=== PATIENT | male | born 1965 | race Caucasian/White ===

== ENCOUNTER 2020-10-13 08:55 | Outpatient (REF) | payer MEDICAID, SELFPAY ==
[2020-10-13 11:42] LABS: Estimated Average Glucose 180 mg/dL; Hemoglobin A1c % 7.9 %
[2020-10-13 12:13] LABS: Alanine Aminotransferase 26 U/L (0-40); Albumin Level 4.4 g/dL (3.5-5.0); Alkaline Phosphatase 66 U/L (39-117); Anion Gap 14 (12-20); Aspartate Amino Transferase 17 U/L (5-37); Bilirubin Total 0.7 mg/dL (0.0-1.0); Blood Urea Nitrogen 22 mg/dL (9-16); Calcium 8.9 mg/dL (8.4-10.2); Carbon Dioxide 25 mmol/L (22-29); Chloride 101 mmol/L (96-108); Cholesterol 109 mg/dL; Estimated Glomerular Filt Rate > 60; Glucose Fasting 253 mg/dL (60-99); HDL Cholesterol 33 mg/dL; LDL Cholesterol Calculated 63 mg/dl; Potassium 3.9 mmol/l (3.3-5.1); Sodium 136 mmol/L (135-145); Total Protein 7.1 g/dL (6.5-8.0); Triglycerides 69 mg/dL
== END 2020-10-13 08:56 | disposition home or self-care (01) ==
LOC: HO.MANLR 08:55
PROVIDERS: PCP Internal Medicine; Visit Provider Internal Medicine
DX: E11.9 Type 2 diabetes mellitus without complications (principal)
CPT/HCPCS: 80053; 80061; 83036

== ENCOUNTER 2021-01-14 08:35 | Outpatient (REF) | payer MEDICAID, SELFPAY ==
[2021-01-14 14:01] LABS: Estimated Average Glucose 146 mg/dL; Hemoglobin A1c % 6.7 %
== END 2021-01-14 08:36 | disposition home or self-care (01) ==
LOC: HO.MANLR 08:35
PROVIDERS: PCP Internal Medicine; Visit Provider Internal Medicine
DX: E11.9 Type 2 diabetes mellitus without complications (principal)
CPT/HCPCS: 36415; 83036

== ENCOUNTER 2021-04-21 08:46 | Outpatient (REF) | payer MEDICAID, SELFPAY ==
[2021-04-21 12:03] LABS: Estimated Average Glucose 171 mg/dL; Hemoglobin A1c % 7.6 %
== END 2021-04-21 08:47 | disposition home or self-care (01) ==
LOC: HO.MANLDS 08:46
PROVIDERS: PCP Internal Medicine; Visit Provider Internal Medicine
DX: E11.9 Type 2 diabetes mellitus without complications (principal)
CPT/HCPCS: 36415; 83036

== ENCOUNTER 2021-08-12 08:31 | Outpatient (REF) | payer MEDICAID, SELFPAY ==
[2021-08-12 12:58] LABS: Estimated Average Glucose 183 mg/dL
== END 2021-08-12 08:32 | disposition home or self-care (01) ==
LOC: HO.MANLDS 08:31
PROVIDERS: PCP Internal Medicine; Visit Provider Internal Medicine
DX: E11.9 Type 2 diabetes mellitus without complications (principal)
CPT/HCPCS: 36415; 83036

== ENCOUNTER 2021-11-13 08:43 | Outpatient (REF) | payer MEDICAID, SELFPAY ==
[2021-11-13 11:19] LABS: Estimated Average Glucose 171 mg/dL; Hemoglobin A1c % 7.6 %
== END 2021-11-13 08:44 | disposition home or self-care (01) ==
LOC: HO.MANLDS 08:43
PROVIDERS: PCP Internal Medicine; Visit Provider Internal Medicine
DX: E11.9 Type 2 diabetes mellitus without complications (principal)
CPT/HCPCS: 36415; 83036

== ENCOUNTER 2022-02-15 08:42 | Outpatient (REF) | payer MEDICAID, SELFPAY ==
[2022-02-15 11:27] LABS: Estimated Average Glucose 212 mg/dL
[2022-02-15 11:42] LABS: Alanine Aminotransferase 31 U/L (0-40); Albumin Level 4.3 g/dL (3.5-5.0); Alkaline Phosphatase 71 U/L (39-117); Anion Gap 14 (12-20); Aspartate Amino Transferase 18 U/L (5-37); Bilirubin Total 0.9 mg/dL (0.0-1.0); Blood Urea Nitrogen 18 mg/dL (9-16); Calcium 9.4 mg/dL (8.4-10.2); Carbon Dioxide 25 mmol/L (22-29); Chloride 99 mmol/L (96-108); Cholesterol 109 mg/dL; Estimated Glomerular Filt Rate > 60; Glucose Fasting 263 mg/dL (60-99); HDL Cholesterol 34 mg/dL; LDL Cholesterol Calculated 59 mg/dl; Sodium 134 mmol/L (135-145); Triglycerides 80 mg/dL
== END 2022-02-15 08:43 | disposition home or self-care (01) ==
LOC: HO.MANLDS 08:42
PROVIDERS: PCP Internal Medicine; Visit Provider Internal Medicine
DX: E11.9 Type 2 diabetes mellitus without complications (principal)
CPT/HCPCS: 36415; 80053; 80061; 83036

== ENCOUNTER 2022-02-16 12:23 | Outpatient (REF) | payer MEDICAID, SELFPAY ==
[2022-02-16 18:21] LABS: Creatinine Urine 73.81 mg/dL; Microalbum/Creatinine Ratio Ur 41.9 ug/mg cr
== END 2022-02-16 12:24 | disposition home or self-care (01) ==
LOC: HO.MANLNP 12:23
PROVIDERS: PCP Internal Medicine; Visit Provider Internal Medicine
DX: E11.9 Type 2 diabetes mellitus without complications (principal)
CPT/HCPCS: 82043

== ENCOUNTER 2022-05-25 08:38 | Outpatient (REF) | payer MEDICAID, SELFPAY ==
[2022-05-25 12:25] LABS: Estimated Average Glucose 157 mg/dL; Hemoglobin A1c % 7.1 %
== END 2022-05-25 08:39 | disposition home or self-care (01) ==
LOC: HO.MANLDS 08:38
PROVIDERS: Visit Provider Internal Medicine
DX: E11.9 Type 2 diabetes mellitus without complications (principal)
CPT/HCPCS: 36415; 83036

== ENCOUNTER 2022-09-07 08:32 | Outpatient (REF) | payer MEDICAID, SELFPAY ==
[2022-09-07 11:33] LABS: Estimated Average Glucose 151 mg/dL; Hemoglobin A1c % 6.9 %
[2022-09-07 11:51] LABS: Alanine Aminotransferase 23 U/L (0-40); Albumin Level 4.5 g/dL (3.5-5.0); Alkaline Phosphatase 60 U/L (39-117); Anion Gap 14 (12-20); Aspartate Amino Transferase 16 U/L (5-37); Bilirubin Total 0.6 mg/dL (0.0-1.0); Blood Urea Nitrogen 19 mg/dL (9-16); Calcium 9.2 mg/dL (8.4-10.2); Carbon Dioxide 28 mmol/L (22-29); Chloride 102 mmol/L (96-108); Cholesterol 102 mg/dL; Estimated Glomerular Filt Rate > 60; Glucose Random 178 mg/dL (60-115); HDL Cholesterol 33 mg/dL; LDL Cholesterol Calculated 56 mg/dl; Potassium 3.8 mmol/L (3.3-5.1); Sodium 140 mmol/L (135-145); Triglycerides 68 mg/dL
[2022-09-07 12:02] LABS: Prostate Specific Antigen 0.26 ng/mL (<0.05-4.0)
[2022-09-07 12:03] LABS: Creatinine Urine 36.69 mg/dL; Microalbum/Creatinine Ratio Ur 57.2 ug/mg cr
== END 2022-09-07 08:33 | disposition home or self-care (01) ==
LOC: HO.MANLDS 08:32
PROVIDERS: Visit Provider Internal Medicine
DX: Z12.5 Encounter for screening for malignant neoplasm of prostate (principal); E11.9 Type 2 diabetes mellitus without complications
CPT/HCPCS: 36415; 80053; 80061; 82043; 83036; 84153

== ENCOUNTER 2023-01-04 08:33 | Outpatient (REF) | payer MEDICAID, SELFPAY ==
[2023-01-04 11:23] LABS: Estimated Average Glucose 177 mg/dL; Hemoglobin A1c % 7.8 %
[2023-01-04 11:56] LABS: Creatinine Urine 22.99 mg/dL; Microalbum/Creatinine Ratio Ur 104.3 ug/mg cr
[2023-01-04 11:59] LABS: Alanine Aminotransferase 26 U/L (0-40); Albumin Level 4.4 g/dL (3.5-5.0); Alkaline Phosphatase 73 U/L (39-117); Anion Gap 16 (12-20); Aspartate Amino Transferase 15 U/L (5-37); Bilirubin Total 0.9 mg/dL (0.0-1.0); Blood Urea Nitrogen 16 mg/dL (9-16); Calcium 9.5 mg/dL (8.4-10.2); Carbon Dioxide 25 mmol/L (22-29); Chloride 101 mmol/L (96-108); Cholesterol 112 mg/dL; Estimated Glomerular Filt Rate > 60; Glucose Random 239 mg/dL (60-115); HDL Cholesterol 35 mg/dL; LDL Cholesterol Calculated 62 mg/dl; Sodium 138 mmol/L (135-145); Total Protein 6.9 g/dL (6.5-8.0); Triglycerides 75 mg/dL
== END 2023-01-04 08:34 | disposition home or self-care (01) ==
LOC: HO.MANLDS 08:33
PROVIDERS: Visit Provider Internal Medicine
DX: Z13.89 Encounter for screening for other disorder (principal)
CPT/HCPCS: 36415; 80053; 80061; 82043; 83036

== ENCOUNTER 2023-06-28 08:30 | Outpatient (REF) | payer OTHER, SELFPAY ==
[2023-06-28 13:51] LABS: Estimated Average Glucose 177 mg/dL; Hemoglobin A1c % 7.8 %
[2023-06-28 14:20] LABS: Alanine Aminotransferase 32 U/L (0-40); Albumin Level 4.2 g/dL (3.5-5.0); Alkaline Phosphatase 70 U/L (39-117); Anion Gap 17 (12-20); Aspartate Amino Transferase 18 U/L (5-37); Bilirubin Total 0.7 mg/dL (0.0-1.0); Blood Urea Nitrogen 21 mg/dL (9-16); Calcium 9.4 mg/dL (8.4-10.2); Carbon Dioxide 24 mmol/L (22-29); Chloride 103 mmol/L (96-108); Cholesterol 100 mg/dL; Estimated Glomerular Filt Rate > 60; Glucose Random 224 mg/dL (60-115); HDL Cholesterol 28 mg/dL; LDL Cholesterol Calculated 55 mg/dl; Potassium 3.6 mmol/L (3.3-5.1); Sodium 140 mmol/L (135-145); Total Protein 7.1 g/dL (6.5-8.0); Triglycerides 85 mg/dL
== END 2023-06-28 08:31 | disposition home or self-care (01) ==
LOC: HO.MANLDS 08:30
PROVIDERS: Visit Provider Internal Medicine
DX: E11.9 Type 2 diabetes mellitus without complications (principal)
CPT/HCPCS: 36415; 80053; 80061; 83036

== ENCOUNTER 2024-03-07 08:48 | Outpatient (REF) | payer OTHER, SELFPAY ==
[2024-03-07 14:12] LABS: Estimated Average Glucose 174 mg/dL; Hemoglobin A1c % 7.7 % (<6.0)
== END 2024-03-07 08:49 | disposition home or self-care (01) ==
LOC: HO.MANLDS 08:48
PROVIDERS: Visit Provider Internal Medicine
DX: E11.9 Type 2 diabetes mellitus without complications (principal)
CPT/HCPCS: 36415; 83036

== ENCOUNTER 2024-08-15 08:37 | Outpatient (REF) | payer OTHER, SELFPAY ==
[2024-08-15 13:57] LABS: Estimated Average Glucose 206 mg/dL; Hemoglobin A1c % 8.8 % (<6.0)
[2024-08-15 14:59] LABS: Alanine Aminotransferase 42 U/L (0-40); Albumin Level 4.3 g/dL (3.5-5.0); Alkaline Phosphatase 71 U/L (39-117); Anion Gap 12 (12-20); Aspartate Amino Transferase 20 U/L (5-37); Bilirubin Total 0.6 mg/dL (0.0-1.0); Blood Urea Nitrogen 15 mg/dL (9-16); Calcium 9.4 mg/dL (8.4-10.2); Carbon Dioxide 26 mmol/L (22-29); Chloride 103 mmol/L (96-108); Cholesterol 108 mg/dL (<200); Estimated Glomerular Filt Rate > 60; Glucose Fasting 270 mg/dL (60-99); HDL Cholesterol 34 mg/dL (>40); LDL Cholesterol Calculated 63 mg/dL (<100); Potassium 3.8 mmol/L (3.3-5.1); Sodium 137 mmol/L (135-145); Total Protein 7.2 g/dL (6.5-8.0); Triglycerides 58 mg/dL (<150)
== END 2024-08-15 08:38 | disposition home or self-care (01) ==
LOC: HO.MANLDS 08:37
PROVIDERS: Visit Provider Internal Medicine
DX: E11.9 Type 2 diabetes mellitus without complications (principal)
CPT/HCPCS: 36415; 80053; 80061; 83036

== ENCOUNTER 2025-01-22 08:38 | Outpatient (REF) | payer OTHER, SELFPAY ==
--- OUTSIDE RECORDS SUMMARY | 2025-01-22 09:10 | XMS_ITS | Data Portability ---
Author Organization [facility] Service Address [address] [place] [address] Assessment Encounter Date Assessment Date Assessment LastModified by Organization Details LastModified Time 11/09/2023 11/09/2023 COLO RECT SCREEN , DIABETES FOOT EYE EXAM [email or web address] Not available 11/07/2023 12:03:39 12/27/2023 12/27/2023 [id number] [place] [id number] (SERVICE WRITER ADVISOR) : MDM LOW MUST MEET 2 OF 3 ELEMENTS: PROBLEMS, DATA OR RISK ELEMENT 1: PROBLEMS ADDRESSED (LOW): 2 OR MORE SELF-LIMITED OR MINOR PROBLEMS OR 1 STABLE CHRONIC ILLNESS OR 1 ACUTE UNCOMPLICATED ILLNESS OR INJURY ELEMENT 2: DATA TO BE REVISED AND ANALYZED (LOW) MUST MEET 1 OF 2 CATEGORIES: CATEGORY 1. REVIEW OF PRIOR EXTERNAL NOTES/RESULTS, ORDERING OF TEST(S) CATEGORY 2. ASSESSMENT REQUIRING INDEPENDENT HISTORIAN(S) INCLUDE WHO THE HISTORIAN IS AND RELATION TO PT AND WHY PT IS UNABLE TO GIVE COMPLETE HISTORY ELEMENT 3: RISK (LOW) RISK OF COMPLICATIONS AND/OR MORBIDITY OR MORTALITY OF PATIENT MANAGEMENT PROVIDER MUST THOROUGHLY DOCUMENT ALL OF THE ELEMENTS COVERED Not available 12/27/2023 14:38:10 03/20/2024 03/20/2024 [id number] [place] [id number] (SERVICE WRITER ADVISOR) MDM MODERATE MUST MEET 2 OUT OF 3 ELEMENTS: PROBLEMS, DATA OR RISK ELEMENT 1: PROBLEMS ADDRESSED 1 OR MORE CHRONIC ILLNESS WITH EXACERBATION OR 2 OR MORE STABLE CHRONIC ILLNESSES OR 1 UNDIAGNOSED NEW PROBLEM OR 1 ACUTE ILLNESS W/SYMPTOMS OR 1 ACUTE COMPLICATED INJURY ELEMENT 2: DATA MUST MEET 1 OF 3 CATEGORIES CATEGORY 1: REVIEW OF PRIOR EXTERNAL NOTES, REVIEW OF RESULTS, ORDERING OF EACH TEST, ASSESSMENT REQUIRING INDEPENDENT HISTORIAN OR CATEGORY 2: INDEPENDENT INTERPRETATION OF TESTS BY ANOTHER PHYSICIAN OR SPECIALIST OR CATEGORY 3: DISCUSSION OF MGT OR TEST INTERPRETATION W/EXTERNAL PHYSICIAN OR SPECIALIST ELEMENT 3: RISK RISK OF COMPLICATIONS AND/OR MORBIDITY OR MORTALITY OF PATIENT MANAGEMENT PROVIDER MUST THOROUGHLY DOCUMENT EACH ELEMENT THAT IS COVERED Not available 03/20/2024 14:42:02 08/28/2024 08/28/2024 [id number] [place] [id number] (SERVICE WRITER ADVISOR) MDM MODERATE MUST MEET 2 OUT OF 3 ELEMENTS: PROBLEMS, DATA OR RISK ELEMENT 1: PROBLEMS ADDRESSED 1 OR MORE CHRONIC ILLNESS WITH EXACERBATION OR 2 OR MORE STABLE CHRONIC ILLNESSES OR 1 UNDIAGNOSED NEW PROBLEM OR 1 ACUTE ILLNESS W/SYMPTOMS OR 1 ACUTE COMPLICATED INJURY ELEMENT 2: DATA MUST MEET 1 OF 3 CATEGORIES CATEGORY 1: REVIEW OF PRIOR EXTERNAL NOTES, REVIEW OF RESULTS, ORDERING OF EACH TEST, ASSESSMENT REQUIRING INDEPENDENT HISTORIAN OR CATEGORY 2: INDEPENDENT INTERPRETATION OF TESTS BY ANOTHER PHYSICIAN OR SPECIALIST OR CATEGORY 3: DISCUSSION OF MGT OR TEST INTERPRETATION W/EXTERNAL PHYSICIAN OR SPECIALIST ELEMENT 3: RISK RISK OF COMPLICATIONS AND/OR MORBIDITY OR MORTALITY OF PATIENT MANAGEMENT PROVIDER MUST THOROUGHLY DOCUMENT EACH ELEMENT THAT IS COVERED Not available 08/28/2024 13:43:56 12/24/2024 12/24/2024 [id number] [place] [id number] (SERVICE WRITER ADVISOR) MDM MODERATE MUST MEET 2 OUT OF 3 ELEMENTS: PROBLEMS, DATA OR RISK ELEMENT 1: PROBLEMS ADDRESSED 1 OR MORE CHRONIC ILLNESS WITH EXACERBATION OR 2 OR MORE STABLE CHRONIC ILLNESSES OR 1 UNDIAGNOSED NEW PROBLEM OR 1 ACUTE ILLNESS W/SYMPTOMS OR 1 ACUTE COMPLICATED INJURY ELEMENT 2: DATA MUST MEET 1 OF 3 CATEGORIES CATEGORY 1: REVIEW OF PRIOR EXTERNAL NOTES, REVIEW OF RESULTS, ORDERING OF EACH TEST, ASSESSMENT REQUIRING INDEPENDENT HISTORIAN OR CATEGORY 2: INDEPENDENT INTERPRETATION OF TESTS BY ANOTHER PHYSICIAN OR SPECIALIST OR CATEGORY 3: DISCUSSION OF MGT OR TEST INTERPRETATION W/EXTERNAL PHYSICIAN OR SPECIALIST ELEMENT 3: RISK RISK OF COMPLICATIONS AND/OR MORBIDITY OR MORTALITY OF PATIENT MANAGEMENT PROVIDER MUST THOROUGHLY DOCUMENT EACH ELEMENT THAT IS COVERED Not available 12/24/2024 13:50:02 Plan of Treatment Reminders Order Date Submit Date Provider Last Modified By Organization Details Last Modified Time Details Appointments FOLLOW UP 15 2024 01:30P Naz MONCADA Not available Not available Not available Lab HbA1c (hemoglob in A1c), blood 2024 025 [facility], [address] [place] [address], [place], [address], 12/24/2024 13:56:18 CMP, serum or plasma 2022 024 [email or web address], [address] [facility], [address], [place], [address], 02/07/2024 08:48:04 lipid panel, blood 2022 024 [email or web address], [address] [place] [address], [address], [place], [address], 02/07/2024 08:48:20 HbA1c (hemoglob in A1c), blood 2023 024 [facility], [address] [place] [address], [address], 12/27/2023 14:44:16 CMP, serum or plasma 2023 024 [facility], [address] [place] [address], [address], 12/27/2023 14:44:15 HbA1c (hemoglob in A1c), blood 2022 023 [facility], [address] [place] [address], [address], 03/08/2024 11:13:43 HbA1c (hemoglob in A1c), blood [address] [facility], [address] [place] [address], [address], 03/20/2024 14:34:53 Referral None recorded. Procedures None recorded. Surgeries None recorded. Imaging None recorded. Medication Orders escitalop lucero 10 mg tablet 2022 023 [place] [address] [id number], [address] [place] [address], [id number], 11/09/2023 13:41:37 Patient TargetsNo targets recorded. Patient Instructions Encounter Date Encounter Id Patient Instructions Last Modified By Organization Details Last Modified Time 11/09/2023 [id number] controlling your asthma: care instructions Not available 11/09/2023 13:41:37 learning about asthma Not available 11/09/2023 13:41:37 pulse oximetry* Not available 11/09/2023 13:41:40 03/20/2024 [id number] controlling your asthma: care instructions Not available 03/20/2024 14:42:36 learning about asthma Not available 03/20/2024 14:42:36 08/28/2024 [id number] learning about asthma Not available 08/28/2024 13:46:07 pulse oximetry* MARY Not available 08/28/2024 14:20:03 learning about type 2 diabetes Not available 08/28/2024 13:46:07 type 2 diabetes: care instructions Not available 08/28/2024 13:46:06 12/24/2024 [id number] pulse oximetry* Not available 12/24/2024 13:50:20 learning about type 2 diabetes Not available 12/24/2024 13:55:10 type 2 diabetes: care instructions Not available 12/24/2024 13:55:10 Reason for Referral None Reported. Results Created Date Observation Date Name Description Value Unit Range Abnormal Flag Note LastModifiedBy Organization Detail LastModifiedTime 11/09/2011/09/2023 pulse oxime try* Result 96 Not Available [facility] [address] [place] [address], [address], 11/07/2023 12:03:03 08/28/2008/28/2024 pulse oxime try* Result 93 Not Available [facility] [address] [place] [address], [place], [address], 08/27/2024 11:27:37 12/24/19 25 12/24/2024 pulse oxime try* Result 96 Not Available [facility] [address] [place] [address], [place], [address], 12/21/2024 08:51:27 10/20/20 23 10/13/2023 pulmo nary funct ion test* No observ ation record ed. [facility]) [address] [facility], [place], [address], 11/09/2023 13:30:59 08/03/20 24 08/03/2024 PFT, compl ete No observ ation record ed. [email or web address] [facility] [address] [facility] [address], [place], [address], 08/03/2024 12:08:27 Result Notes None recorded. 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 6425169 Active 2018 Diann rosas [facility] 4 12:22:26 Neuropat hy due to diabetes mellitus 151831835 Active 2018 Diann rosas [facility] 4 12:22:26 Neuropat hic ulcer of foot due to diabetes mellitus 823475832 Active 2019 Diann rosas [facility] 4 12:22:26 Pain in right foot 4496402848 28551 Active 2022 Not Available [facility] 3 22:28:58 Anxiety 88251398 Active 2022 Diann rosas [facility] Internal [facility] 4 12:22:26 Chronic ulcer of lower extremit y 09211780 Active 2023 Diann rosas [facility] 4 12:22:26 Irritabi lity and anger 259149785 Active 2023 Jj Moncada DO [address] [place], [address], 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 5 13:52:26 Asthma 641854694 [facility] 4 12:22:26 [facility] hyperten vega 26847810 Active 2017 Diann rosas [facility] 4 12:22:26 Type 2 diabetes mellitus 01231775 Active 2017 retinopa thy Diann rosas [facility] 4 12:22:26 Impaired fasting glycemia 200225152 Completed 201703/14/2020 [facility] 15:26:06 Mixed hyperlip idemia 286458838 Active [facility] 4 12:22:26 Notes:Some problems listed i n Documents: #[id number], #[id number] could not be added to this patient's chart. Please review these documents and add these problems to the patient's chart manually as needed. Problem Notes None recorded. Procedures Surgical History None recorded. Imaging Results Imaging Date Name Status LastModified by Organiz [facility] Details LastModified Time 10/13/2023 pulmonary function test* completed [facility] [address] [place], [address], 11/09/2023 13:30:59 08/03/2024 PFT, complete completed [email or web address] [facility] [address] [facility] [address], [place], [address], 08/03/2024 12:08:27 Procedure Notes None recorded. Medical Equipment None Reported. Allergies No known drug allergies Medications Name Sig Start Date Stop Date Status Note LastModified by Organization Details LastModified Time loratadine 10 mg tabs 08/20 completed Not Available Not Available Not Available atorvastati n 40 mg tablet TAKE 1 TABLET BY MOUTH EVERY DAY active Not Available Not Available No t Available metformin 500 mg tablet take 1 tablet by mouth twice a day TAKE WITH MEALS 07/02 completed Not Available Not Available Not Available lisinopril 20 mg-hydrochl orothiazide 12.5 mg tablet TAKE 2 TABLETS BY MOUTH EVERY DAY active Not Available Not Available No t Available Zithromax Z-Mauro 250 mg tablet TAKE 2 TABLETS (500 MG) BY ORAL ROUTE ONCE DAILY FOR 1 DAY THEN 1 TABLET (250 MG) BY ORAL ROUTE ONCE DAILY FOR 4 DAYS 12/09 completed Not Available Not Available Not Available fexofenadin e 180 mg tablet 01/19 completed Not Available Not Available Not Available amlodipine 5 mg tablet take 1 tablet by mouth once daily 07/12 completed Not Available Not Available Not Available amlodipine 10 mg tablet TAKE 1 TABLET BY MOUTH EVERY DAY 2024 active Not Available Not Available Not Avai lable metformin 1,000 mg tablet TAKE 1 TABLET BY MOUTH TWICE DAILY active Not Available Not Available No t Available zafirlukast 20 mg tablet TAKE 1 TABLET BY MOUTH TWICE DAILY 06/07 completed Not Available Not Available Not Available lisinopril 20 mg-hydrochl orothiazide 25 mg tablet TAKE 1 TABLET BY MOUTH EVERY DAY 03/20 completed Not Available Not Available Not Available albuterol sulfate HFA 90 mcg/actuati on aerosol inhaler INHALE 2 PUFFS BY MOUTH EVERY 4 HOURS active Not Available Not Available No t Available ipratropium bromide 42 mcg (0.06 %) nasal spray 07/12 completed Not Available Not Available Not Available fluticasone propionate 50 mcg/actuati on nasal spray,suspe nsion SHAKE LIQUID AND USE 1 SPRAY IN EACH NOSTRIL TWICE DAILY 06/07 completed Not Available Not Available Not Available loratadine 10 mg tablet Take 1 tablet every day by oral route for 30 days. 12/10 completed Not Available Not Available Not Available escitalopra m 10 mg tablet TAKE 1 TABLET BY MOUTH EVERY DAY active Not Available Not Available No t Available escitalopra m 5 mg tablet TAKE 1 TABLET BY MOUTH EVERY DAY 08/28 completed Not Available Not Available Not Available Flovent HFA 110 mcg/actuati on aerosol inhaler Inhale 1 puff twice a day by inhalatio n route. 03/07 completed Not Available Not Available Not Available Flovent HFA 220 mcg/actuati on aerosol inhaler Inhale 1 puff twice a day by inhalatio n route for 30 days. 05/15 completed Not Available Not Available Not Available chlorhexidi ne gluconate 0.12 % mouthwash 08/20 completed Not Available Not Available Not Available Symbicort 160 mcg-4.5 mcg/actuati on HFA aerosol inhaler INHALE 2 PUFFS INTO THE LUNGS TWICE DAILY 06/07 completed Not Available Not Available Not Available Symbicort 80 mcg-4.5 mcg/actuati on HFA aerosol inhaler INHALE 2 PUFFS INTO THE LUNGS FOUR TIMES DAILY NEEDED active Not Available Not Available No t Available Breo Ellipta 100 mcg-25 mcg/dose powder for inhalation INHALE 1 PUFF INTO THE LUNGS DAILY active Not Available Not Available No t Available Trulicity 1.5 mg/0.5 mL subcutaneou s pen injector ADMINISTE R 1.5 MG UNDER THE SKIN 1 TIME EVERY WEEK active Not Available Not Available No t Available Trulicity 0.75 mg/0.5 mL subcutaneou s pen injector ADMINISTE R 0.75 MG UNDER THE SKIN EVERY WEEK 09/21 completed Not Available Not Available Not Available Afluria 4421-6855 (PF) 45 mcg(15 mcg x 3)/0.5 mL intramuscul ar syringe 04/10 completed Not Available Not Available Not Available Trelegy Ellipta 100 mcg-62.5 mcg-25 mcg powder for inhalation Inhale 1 puff every day by inhalatio n route. 08/20 completed Not Available Not Available Not Available Fluzone Quad 2018-19(PF) 60 mcg(15 mcgx4)/0.5 mL intramuscul ar syringe 03/07 completed Not Available Not Available Not Available Afluria Qd 2018- (36 mos up)(PF)60 mcg (15 mcg x4)/0.5 mL IM syringe 03/14 completed Not Available Not Available Not Available Afluria Qd 2019- (36 mos up)(PF)60 mcg (15 mcg x4)/0.5 mL IM syringe ADM 0.5ML IM UTD 02/02 completed Not Available Not Available Not Available Trulicity 3 mg/0.5 mL subcutaneou s pen injector ADMINISTE R 3 MG UNDER THE SKIN EVERY WEEK DIRECTED active Not Available Not Available No t Available BinaxNOW COVID-19 Ag Self Test kit TEST DIRECTED TODAY 09/21 completed Not Available Not Available Not Available Vitals Date Recorded Body height Body mass index (BMI) Body weight Heart rate Oxygen saturation Oxygen saturation in Arterial blood by Pulse oximetry Systolic blood pressure Diastolic blood pressure Provider Name and Address Organization Details Last Updated DateTime 3 177.8 cm 29 kg/m2 56831.6 6 g 80 /min 96 % 96 % 136 mm[Hg] 68 mm[Hg] Danelle Mueller [facility] 3 13:26:16 Date Recorded Body height Body mass index (BMI) Body weight Heart rate Oxygen saturation Oxygen saturation in Arterial blood by Pulse oximetry Systolic blood pressure Diastolic blood pressure Provider Name and Address Organization Details Last Updated DateTime 4 177.8 cm 28.9 kg/m2 32603.4 3 g 80 /min 96 % 96 % 130 mm[Hg] 84 mm[Hg] Diann Broderick [facility] 4 14:28:14 Date Recorded Body height Body mass index (BMI) Body weight Heart rate Oxygen saturation Oxygen saturation in Arterial blood by Pulse oximetry Systolic blood pressure Diastolic blood pressure Provider Name and Address Organization Details Last Updated DateTime 4 177.8 cm 29.1 kg/m2 28239.2 5 g 79 /min 93 % 93 % 120 mm[Hg] 70 mm[Hg] Danelle Mueller [facility] 4 13:37:40 Date Recorded Body height Body mass index (BMI) Body weight Heart rate Oxygen saturation Oxygen saturation in Arterial blood by Pulse oximetry Systolic blood pressure Diastolic blood pressure Provider Name and Address Organization Details Last Updated DateTime 5 177.8 cm 29.7 kg/m2 54929.6 2 g 86 /min 96 % 96 % 130 mm[Hg] 66 mm[Hg] [facility] 5 13:28:12 Social History Question Answer Notes LastModified by Organizat ion Details LastModified Time Tobacco Smoking Status Never Smoker Not Available [facility] 09/30/2020 03:36:24 What Was The Date Of Your Most Recent Tobacco Screening? 12/24/2024 [email or web address] Information not available 12/24/2024 Do You Or Have You Ever Used Any Other Forms Of Tobacco Or Nicotine? No [email or web address] Information not available 03/02/2022 Sex: Unknown Functional Status None recorded. Mental Status None recorded. Family History Relationship Description Onset Age of this Age Resolved Age Notes LastModified by Organization Details LastModified Time Maternal Grandfather Carcinoma of prostate [email or web address] Not available 2018 14:48:00 Paternal Grandfather Malignant neoplastic disease jvanasse Not available 2018 14:48:13 Mother Diabetes mellitus [email or web address] Not available 2018 14:48:29 Mother Hypertensive disorder jvanasse Not available 2018 14:48:39 Mother Cerebrovascu lar accident jvanasse Not available 07/2019 14:48:57 Maternal Uncle Diabetes mellitus jvanasse Not available 2018 14:48:29 Father Cerebrovascu lar accident jvanasse Not available 07/2019 14:48:57 Father Myocardial infarction age 66 [email or web address] Not available 03/06 14:49:09 Brother Cerebrovascu lar accident jvanasse Not available 07/2019 14:48:57 Medical History No medical history recorded. Immunizations Vaccine Type Date Status Note Provider Nam e and Address Organization Details Recorded Time COVID-19, mRNA, LNP-S, PF, 100 mcg/0.5mL dose or 50 mcg/0.25mL dose 1 completed Not Available [facility] 07/10/2023 22:28:58 Influenza, split virus, quadrivalent, preservative 1 completed Not Available [facility] 07/10/2023 22:28:58 COVID-19, mRNA, LNP-S, PF, 30 mcg/0.3 mL dose 2 completed Not Available [facility] 07/10/2023 22:28:58 pneumococcal polysaccharide PPV23 1 completed Not Available [facility] 07/10/2023 22:28:58 influenza, unspecified formulation 2 completed Not Available [facility] 07/10/2023 22:28:58 Influenza, split virus, quadrivalent, preservative 0 completed Not Available [facility] 07/10/2023 22:28:58 Influenza, split virus, quadrivalent, preservative 0 completed Not Available [facility] 07/10/2023 22:28:58 Influenza, split virus, quadrivalent, preservative 0 completed Not Available [facility] 07/10/2023 22:28:58 Influenza, split virus, quadrivalent, preservative 8 completed Not Available [facility] 07/10/2023 22:28:58 COVID-19, mRNA, LNP-S, PF, 100 mcg/0.5mL dose or 50 mcg/0.25mL dose 1 completed Not Available [facility] 07/10/2023 22:28:58 COVID-19, mRNA, LNP-S, PF, 100 mcg/0.5mL dose or 50 mcg/0.25mL dose 1 completed Not Available [facility] 07/10/2023 22:28:58 Past Encounters Encounter ID Performer Location Encounter Start Date Encounter Closed Date Diagnosis/Indication Diagnosis SNOMED-CT Code Diagnosis ICD10 Code Diagnosis Note [id number] [facility] [address] [facility],[place] [address] 04/10/2018 10:45:22 04/10/2018 13:17:24 Essential hypertension 16953038 I10 not well controlled reinforced dietary and lifestyle changes x 15 min Type 2 farzaneh betes mellitus 74599570 E11.9 has some preprolif dm has some mild dm neuropathy low sugar / low cho reinforced praised for daily exercise thickened callouses - recommend podiatry for maintenanc e to reduce risk of infection Mixed hyperlipidemia 267 391247 E78.2 due for repeat [id number] [facility] [address] [facility],[place] [address] 07/12/2018 13:26:58 07/12/2018 14:05:13 Mixed hyperlipidemia 479925408 E78.2 well controlled Type 2 farzaneh betes mellitus 93885014 E11.9 has some preprolif dm has some mild dm neuropathy low sugar / low cho reinforced praised for daily exercise thickened callouses - he did see podiatry for some callous removal, also fitted with orthotics Essential hypertension 71014492 I10 well controlled Sleep apnea 68817502 G47 .30 uses cpap regularly difficult falling asleep with it though Active or passive immunization 482882235 Z23 [id number] [facility] [address] [facility] [address],[place] [address] 10/02/2018 16:03:04 10/03/2018 08:49:46 Asthma 288273312 J45.909 peak flows are a little low for his demographi c Sleep apnea 71666897 G47 .30 encouraged continued use. Skin tag [id number] L91.8 will recommend seeing derm to have removed for now recommend keeping covered and protected to avoid risk of bleeding [id number] [facility] [address] [facility],[place] [address] 10/18/2018 10:52:39 10/18/2018 12:19:55 Asthma 398062812 J45.909 peak flows are a little low for his demographi c will add flovent using proair daily, hopefully this will be less with flovent added f/u 3 months, sooner if needed Mixed hyperlipidemia 267 182151 E78.2 well controlled will check in 3 months Type 2 farzaneh betes mellitus 37336319 E11.9 has some preprolif dm has some mild dm neuropathy low sugar / low cho reinforced praised for daily exercise thickened callouses - he did see podiatry for some callous removal, also fitted with orthotics Essential hypertension 13776678 I10 well controlled Sleep apnea 41024836 G47 .30 uses cpap regularly difficult falling asleep with it though [id number] February [facility] [address] [facility], [place] [address] 01/19/2019 10:37:01 01/19/2019 11:40:53 Asthma 952270934 J45.909 peak flow max of 400 which is improved still using proair almost daily, hopefully this will be less with increased dose of flovent f/u 3 months, sooner if needed Mixed hyperlipidemia 267 648781 E78.2 well controlled will check in 3 months Type 2 farzaneh betes mellitus 34426265 E11.9 has some preprolif dm retinopath y has some mild dm neuropathy low sugar / low cho reinforced praised for daily exercise thickened callouses - he did see podiatry for some callous removal, also fitted with orthotics Essential hypertension 72819500 I10 well controlled Sleep apnea 96597387 G47 .30 uses cpap regularly difficult falling asleep with it though Allergic rhinitis 909309 04 J30.9 fexofenadi ne not helpful Screening procedure 2012 5006 Z13.9 Body mass index 30+ - obesity 543693738 Z68.31 healthy diet and exercise discussed he does exercise regularly but diet is more important [id number] Jayne Humphreys NP, [facility] [address] [facility], [place] [address] 03/07/2019 14:17:48 03/07/2019 16:49:04 Asthma 957085342 J45.909 Mixed hyperlipidemia 267 044896 E78.2 Type 2 farzaneh betes mellitus 81155456 E11.9 Essential hypertension 21299820 I10 stable [id number] Marylou [facility] [address] [facility] [address], [place] [address] 05/15/2019 13:33:27 05/15/2019 15:28:43 Asthma 929707778 J45.[address] caruso who has pt on trelegy seems to be helping only using proair a few times per week Mixed hyperlipidemia 267 861708 E78.2 well controlled will check in 6 months Type 2 farzaneh betes mellitus 38765896 E11.9 a1c 6.4 fbs 172 has some preprolif. dm retinopath y has some mild dm neuropathy low sugar / low cho reinforced praised for daily exercise thickened callouses - he did see podiatry for nail care and some callous removal, also fitted with orthotics. sees them every 3-4 months. Essential hypertension 53693375 I10 stable Sleep apnea 22796425 G47 .30 uses cpap regularly difficult falling asleep with it though Body mass index 30+ - obesity 746955865 Z68.31 healthy diet and exercise discussed he does exercise regularly but diet is more important Active or passive immunization 090155988 Z23 Screening for malignant neoplasm of colon 730574564 Z12.11 has trouble with transport after procedure will schedule when his sister is visiting and able to give ride Vitamin D deficiency 347 72307 E55.9 Neuropathy due to diabetes mellitus 994148401 R20.2 Adult heal th examination 173442297 Z00.00 [id number] February [facility] Internal Medicine [address] [facility],[place] [address] 08/20/2019 13:22:41 08/20/2019 14:22:54 Adult health examination 162558827 Z00.00 still having trouble arranging transporta tion for colonoscop y - but does plan to do Active or passive immunization 809577780 Z23 tdap and pneumo already previously ordered pt will have flu shot at pharmacy will check to see if insurance covers shingrix Neuropathy due to diabetes mellitus 353537909 R20.2 seems a little list has a blood blister did see foot doctor Sleep apnea 23999339 G47 .30 uses cpap regularly difficult falling asleep with it though Asthma 094170365 J45.[address] caruso who has pt on symbicort only using proair once a week or so Type 2 farzaneh betes mellitus 53088910 E11.9 a1c 6.6 has some preprolif. dm retinopath y has some mild dm neuropathy low sugar / low cho reinforced praised for daily exercise thickened callouses - he did see podiatry for nail care and some callous removal, also fitted with orthotics. sees them every 3-4 months. Essential hypertension 94040593 I10 stable [id number] February [facility] Internal Medicine [address] [facility],[place] [address] 12/10/2019 11:05:48 12/10/2019 11:42:33 Asthma 654551656 J45.[address] caruso who has pt on symbicort only using proair once a week or so Neuropathy due to diabetes mellitus 910503675 R20.2 persists, sees foot doctor for diabetic shoes due for new ones Essential hypertension 65225902 I10 stable Sleep apnea 49792276 G47 .30 uses cpap regularly difficult falling asleep with it though Type 2 farzaneh betes mellitus 55732198 E11.9 a1c 7.4 continues to exercise daily, struggles with diet - larger portions and snacking at night has some preprolif. dm retinopath y has some mild dm neuropathy low sugar / low cho reinforced praised for daily exercise thickened callouses - he did see podiatry for nail care and some callous removal, also fitted with orthotics. sees them every 3-4 months. Mixed hyperlipidemia 267 778575 E78.2 well controlled will check in 6 months Body mass index 30+ - obesity 248948720 Z68.31 healthy diet and exercise discussed he does exercise regularly but dieting is reinforced set goal for 5-10 lb weight loss by 3 months [id number] [facility] Internal [facility] [address] [facility],[place] [address] 03/14/2020 11:11:25 03/14/2020 11:48:03 Asthma 012597181 J45.[address] 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 dm retinopath y has some mild dm neuropathy low sugar / low cho reinforced praised for daily exercise thickened callouses - he did see podiatry for nail care and some callous removal, also fitted with orthotics. sees them every 3-4 months. Mixed hyperlipidemia 267 146917 E78.2 well controlled will check in 6 months Body mass index 30+ - obesity 980254679 Z68.31 has lost 6 lbs [id number] Jj Moncada [facility] Internal Medicine [address] [facility],[place] [address] 07/02/2020 15:27:39 07/02/2020 16:19:34 Asthma 220569950 J45.909 followed by zuly no changes Essential hypertension 62503932 I10 relates that he has had occ tightness of chest not a pain Sleep apnea 57854568 G47 .30 still having occ difficulty and has to have it re fitted it seems Type 2 farzaneh betes mellitus 00110545 E11.9 a1c is 6.8 and attributes to his walking still not great with his diet will get eye exam next month Chest pain 99519178 R07. 9 [id number] Jj Moncada DO [facility] Internal Medicine [address] [facility], [place] [facility] [place] 7 10/27/2020 10:58:38 10/27/2020 11:29:52 Asthma 117694216 J45.909 followed by zuly has recently been put on accolate bid Type 2 farzaneh betes mellitus 53498490 E11.9 a1c is 7.9 was 6.6 and 6.8 and relates is walking a lot so he is still not great with his diet has gotten an eye exam will need to see his foot dr Essential hypertension 47058909 I10 relates that he has had occ tightness of chest not a pain Neuropathi c ulcer of foot due to diabetes mellitus 681858894 L97.509 will refer as the callous looks like it is ready to become unearthed and ulcer is beneath [id number] Jj Moncada DO [facility] Internal Medicine [address] [facility],[place] [facility] [place] [place] 02/02/2021 10:55:15 02/02/2021 11:58:50 Asthma 100923068 J45.909 followed by zuly has recently been put on accolate bid Type 2 farzaneh betes mellitus 11191043 E11.9 a1c is 7.9 was 6.6 and 6.8 and relates is walking a lot so he is still not great with his diet has gotten an eye exam will need to see his foot Essential hypertension 12280185 I10 relates that he has had occ tightness of chest not a pain Neuropathy due to diabetes mellitus 849755269 E11.40 seems to be stable and is being careful Neuropathi c ulcer of foot due to diabetes mellitus 516441097 L97.509 has bilateral foot callous and he is managed by podiatry warned him to keep a close eye on it [id number] DO [facility] Internal Medicine [address] [facility] [address],[place] [address] 05/11/2021 10:26:03 05/11/2021 11:08:47 Type 2 diabetes mellitus 74899513 E11.9 a1c isnow 7.6 and was 7.9 was 6.6 and 6.8 and relates is walking a lot so he is still not great with his diet has gotten an eye exam and has seen dr dalton for his feet Mixed hyperlipidemia 267 804992 E78.2 we will have him get more lab next visit Essential hypertension 21463504 I10 relates that he has had occ tightness of chest not a pain Neuropathi c ulcer of foot due to diabetes mellitus 762595528 L97.509 has bilateral foot callous and he is managed by podiatry warned him to keep a close eye on it Asthma 764130569 J45.90 9 followed by zuly has been taking accolate bid Screening for malignant neoplasm of colon 444776060 Z12.11 pt does not want to get colonoscop y right now as 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 a coach tour driver we spoke of the stool test but hed rather wait for his sister to come next year to get him a drive [id number] DO Shivani Frank Internal Medicine [address] [facility] [address],[place] [address] 08/26/2021 08:20:02 08/26/2021 11:36:16 Essential hypertension 44106007 I10 relates that he has had occ tightness of chest in the past but has not been occuring at all since last apptfeels that his stomach feels bloated Asthma 550813406 J45.90 9 followed by zuly has been taking accolate bid Neuropathi c ulcer of foot due to diabetes mellitus 098245425 L97.509 has bilateral foot callous and he is managed by podiatry warned him to keep a close eye on it Neuropathy due to diabetes mellitus 692681844 E11.40 seems to be stable and is being careful Retinopath y due to diabetes mellitus 2741277 E13.319 Type 2 farzaneh betes mellitus 43526197 E11.9 a1c is now 8 but was 7.6 and was 7.9 was 6.6 and 6.8 and relates is walking a lot so he is still not great with his diet so he will change it and get it soen has gotten an eye exam and has seen dr dalton for his feet rechk in jul SOWMYA COPE [facility] Internal Medicine [address] [facility],[place] [address] 10/30/2021 10:46:10 11/02/2021 10:09:42 Acute bronchitis 08354693 J20.8 will treat for acute bronchitis recommende pete getting a COVID test and gave him a list of available sites Asthma 564874852 J45.[address] Caruso, reports that he had his symbicort increased to twice a day for the fall and winter [id number] SOWMYA COPE [facility] Internal Medicine [address] [facility],[place] [address] 12/09/2021 08:10:13 12/15/2021 12:06:00 Retinopathy due to diabetes mellitus 5395374 E13.319 stable Neuropathi c ulcer of foot due to diabetes mellitus 528492311 L97.509 stable Type 2 farzaneh betes mellitus 06853212 E11.9 stable, down from last checkwill increase BP medication per patient readings Asthma 883576570 J45.20 has fu with pulmasthma has been alright, no major flare ups, but very good this week Essential hypertension 88794142 I10 medication adjusted Neuropathy due to diabetes mellitus 524078414 E11.40 stable Sleep apnea 41814161 G47 .33 using CPAP, already had recent fu with sleep medicine this last summer [id number] Jj Moncada, [facility] Internal Medicine [address] [facility] [address],[place] [address] 03/02/2022 13:25:52 03/02/2022 14:21:15 Asthma 851847530 J45.20 HAS NOT been followed by a pulmonolog ist in quite a while i would like to get him establishe d with someone Type 2 farzaneh betes mellitus 74435218 E11.9 a1c is now up to 9 and was 8 but was 7.6 and was 7.9 was 6.6 and 6.8 and he is still not great with his diet so he will change it and get it soenwe will try to get him the trulicity and see if we can get this to help us get his sugar down as he has ongoing retinopath y and neuropathy has gotten an eye exam and has seen dr dalton for his feet rechk in jul Essential hypertension 74574634 I10 relates that he has had occ tightness of chest in the past but has not been occuring at all since last apptfeels that his stomach feels bloated Neuropathy due to diabetes mellitus 180812559 E11.40 seems to be stable and is being careful Retinopath y due to diabetes mellitus 2361457 E13.319 has just had a eye exam told that they are stable [id number] Jj Moncada, [facility] Internal Medicine [address] [facility] [address],[place] [address] 06/07/2022 13:26:21 06/07/2022 14:32:18 Asthma 546386409 J45.20 HAS NOT been followed by a pulmonolog ist in quite a while i would like to get him establishe d with someone Type 2 farzaneh betes mellitus 55331175 E11.9 a1c is now up to 9 and was 8 but was 7.6 and was 7.9 was 6.6 and 6.8 and he is still not great with his diet so he will change it and get it soonwe will try to get him the trulicity and see if we can get this to help us get his sugar down as he has ongoing retinopath y and neuropathy has gotten an eye exam and has seen dr dalton for his feet rechk in jul Essential hypertension 38321764 I10 relates that he has had occ tightness of chest in the past but has not been occuring at all since last apptfeels that his stomach feels bloated Active or passive immunization 385263010 Z23 patient advised she is due for tdap & pneu 23 Screening for malignant neoplasm of colon 147856552 Z12.11 pt does not want to get colonoscop y right now as 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 a coach tour driver we spoke of the stool test but hed rather wait for his sister to come next year to get him a drive [id number] Jj Moncada, [facility] Internal Medicine [address] [facility],[place] [address] 09/21/2022 13:26:34 09/21/2022 13:55:37 Asthma 443456262 J45.20 is asymptomat ic lately Type 2 farzaneh betes mellitus 66418813 E11.9 a1c is now back down to 6.9 was up to 9 and was 8 but was 7.6 and was 7.9 was 6.6 and 6.8 and he is still not great with his diet so he will change it and get it soonwe will try to get him the trulicity and see if we can get this to help us get his sugar down as he has ongoing retinopath y and neuropathy has gotten an eye exam and has seen dr dalton for his feet rechk in jul Essential hypertension 21559303 I10 relates that he has had occ tightness of chest in the past but has not been occuring at all since last apptfeels that his stomach feels bloated Active or passive immunization 401872347 Z23 patient advised he is due for tdap & flu shot [id number] Jj RendonSunny Moncada, [facility] Internal Medicine [address] [facility],[place] [address] 01/18/2023 13:33:20 01/18/2023 14:41:14 Asthma 835198096 J45.20 is asymptomat ic lately Type 2 farzaneh betes mellitus 35232452 E11.9 a1c is now up to 7.8 and prior was back down to 6.9 was up to 9 and was 8 but was 7.6 and was 7.9 was 6.6 and 6.8 and he is still not great with his diet admits to a lot of carb intake has gotten an eye exam and has seen dr dalton for his feet rechk in jul Essential hypertension 87835091 I10 relates that he has had occ tightness of chest in the past but has not been occuring at all since last apptfeels that his stomach feels bloated Pain in right foot 83837 55396 42533 M79.671 pain is bilat seems to poss have a mortons neuroma he will discuss with dr dalton Retinopath y due to diabetes mellitus 7217128 E13.319 has just had a eye exam told that they are stable Neuropathi c ulcer of foot due to diabetes mellitus 309749726 L97.509 has bilateral foot callous and he is managed by podiatry warned him to keep a close eye on it [id number] Jj Moncada [facility] Internal Medicine [address] [facility],[place] [address] 08/24/2023 13:24:31 08/24/2023 13:59:39 Asthma 617399367 J45.20 is asymptomat ic lately Essential hypertension 87337075 I10 relates that he has had occ tightness of chest in the past but has not been occuring at all since last appt has noticed it when he was sitting for a long period of time states that he has been walking long and has no pain feels that his stomach feels bloated Type 2 farzaneh betes mellitus 00096003 E11.9 a1c is now up to 7.8 and prior was back down to 6.9 was up to 9 and was 8 but was 7.6 and was 7.9 was 6.6 and 6.8 and he is still not great with his diet admits to a lot of carb intake has gotten an eye exam and has seen dr dalton for his feet rechk in jul Anxiety 02226482 F41.9 [id number] Jj Moncada [facility] Internal Medicine [address] [facility],[place] [address] 11/09/2023 13:22:19 11/09/2023 13:46:37 Asthma 415300076 J45.20 is asymptomat ic lately Mixed hyperlipidemia 267 854070 E78.2 we will have him get more lab next visit Essential hypertension 21293535 I10 relates that he has had occ tightness of chest in the past but has not been occuring at all since last appt has noticed it when he was sitting for a long period of time states that he has been walking long and has no pain feels that his stomach feels bloated Retinopath y due to diabetes mellitus 6721070 E13.319 has just had a eye exam told that they are stable Type 2 farzaneh betes mellitus 44886050 E11.9 a1c is now up to 7.8 and prior was back down to 6.9 was up to 9 and was 8 but was 7.6 and was 7.9 was 6.6 and 6.8 and he is still not great with his diet admits to a lot of carb intake has gotten an eye exam and has seen dr dalton for his feet rechk in jul Anxiety 70519189 F41.9 [id number] Jj Moncada, [facility] Internal Medicine [address] [facility] [address],[employer] [place] [address] 12/27/2023 08:11:55 12/27/2023 14:39:03 Asthma 611551892 J45.20 is asymptomat ic lately Essential hypertension 56820464 I10 relates that he has had occ tightness of chest in the past but has not been occuring at all since last appt has noticed it when he was sitting for a long period of time states that he has been walking long and has no pain feels that his stomach feels bloated Type 2 farzaneh betes mellitus 94662886 E11.9 a1c is now up to 7.8 and prior was back down to 6.9 was up to 9 and was 8 but was 7.6 and was 7.9 was 6.6 and 6.8 and he is still not great with his diet admits to a lot of carb intake has gotten an eye exam and has seen dr dalton for his feet rechk in jul Irritabili ty and anger 954203358 R45.4 doing well with escitalopr am relates is taking without side effects and feels a little better offered to increase dose but wishes to hold off for now rechk in february for DM [id number] Jj Moncada [facility] Internal Medicine [address] [facility] [address],[employer] [place] [address] 03/20/2024 14:17:35 03/20/2024 15:22:59 Type 2 diabetes mellitus 56620401 E11.9 a1c is 7.7 he is walking which is saving him Asthma 067245227 J45.20 is asymptomat ic lately [id number] Jj Moncada [facility] Internal Medicine [address] [facility],[place] [address] 08/28/2024 13:23:40 08/28/2024 14:45:00 Asthma 062836316 J45.20 is asymptomat ic yusuf thornton in september Type 2 farzaneh betes mellitus 49313244 E11.9 a1c is 8.8 was 7.7 he is walking which is saving him but he needs to get the sugar better controlled and control the night feedings [id number] Jj Moncada [facility] Internal Medicine [address] [facility] [address],[place] [address] 12/24/2024 13:22:22 12/24/2024 14:00:37 Asthma 905480884 J45.20 is asymptomat ic yusuf thornton in september 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 302 019111 J38.01 will follow as necess given his voice is fine Type 2 farzaneh betes mellitus 89698903 E11.9 a1c is 8.8 was 7.7 he is walking which is saving him but he needs to get the sugar better controlled and control the night feedings Health Concerns Section Related Observation LastModified by Organization Detai ls LastModified Time None Recorded Concern Status LastModified by Organization Details LastModified Time None Recorded Advance Directives Directive None Recorded Payers Encounter Date Sequence Insurance Name Policy Number Policy Lindquist Covered Member ID Lindquist Member ID Guarantor Name 11/09/2023 2 [place] [facility] Andres Faust [id number] Andres Faust 11/09/2023 1 [id number] Andres Faust [id number] Andres Faust 12/27/2023 2 [place] Andres Faust [id number] Andres Faust 12/27/2023 1 [id number] nAdres Faust [id number] Andres Faust 03/20/2024 2 [place] Andres Faust [id number] Andres Faust 03/20/2024 1 [id number] Andres Faust [id number] Andres Faust 08/28/2024 1 [facility] [id number] Andres Faust [id number] Andres Faust 12/24/2024 1 [facility] [id number] Andres Faust [id number] Andres Faust Notes Date Note Type Note Provider Name a nd Address Organization Details Recorded Time 11/09/2023 text/html here for carson rendon nd is doing ok but has not noticed any effect yetsleeps a little betterbut there are no side effects and he tolerates the med well Jj Moncada DO [address] [place], [address], [facility] Internal Medicine 11/09/2023 13:44:21 12/27/2023 text/html patient is evaluated via tele/video assessment per patient consentduring current pandemic follow up on escitalopram relates that he is feeling a little bettersleeps ok with it normally the dreams are more vivid but is better Jj Moncada DO [address] [place], [address], [facility] Internal Medicine 12/27/2023 14:43:11 03/20/2024 text/html here for carson rendon nd is doing okfeels well walking dailybreathing is ok and doing wellno major ajjpymq1n is 7.7 but does do a lot of diet bette=scretion Jj Moncada DO [address] [place], [address], [facility] Internal Medicine 03/20/2024 14:42:53 08/28/2024 text/html here for rechkrelates that he has been eating a lot at nightstates still walking a lot every dayangered about politics Jj Moncada DO [address] [place], [address], [facility] Internal Medicine 08/28/2024 13:47:15 12/24/2024 text/html here for sheridan s evid of left laryngeal n ? damage vs pure vocal cord paresis Jj Moncada DO [address] [place], [address], [facility] 12/24/2024 13:56:44
--- OUTSIDE RECORDS SUMMARY | 2025-01-22 09:10 | XMS_ITS | Clinical Summary ---
Author Organization [address] [facility] Address [address] [place] [address] Phone Care Team Providers Care Electric Powerline Examiner Name Role Phone Jj Carlos DO Primary Care Provider [phone] Allergies No known active allergies Medications albuterol HFA (PROAIR HFA ; PROVENTIL HFA ; VENTOLIN HFA) 90 mcg/actuation inhaler Inhale 2 puffs by mouth every 4 (four) hours if needed. Active amLODIPine (NORVASC) 10 mg tablet Take 1 tablet (10 mg total) by mouth. Active atorvastatin (LIPITOR) 40 mg tablet Take 1 tablet (40 mg total) by mouth. Active budesonide-form oteroL (SYMBICORT) 160-4.5 mcg/actuation inhaler Symbicort 160 mcg-4.5 mcg/actuation HFA aerosol inhaler INHALE 2 PUFFS INTO THE LUNGS TWICE DAILY Active budesonide-form oteroL (SYMBICORT) 160-4.5 mcg/actuation inhaler Inhale 2 puffs by mouth. Active ciclopirox (LOPROX) 0.77 % gel Apply 1 Application topically 1 (one) time each day. 3 Active dulaglutide (Trulicity) 0.75 mg/0.5 mL pen injector injection Trulicity 0.75 mg/0.5 mL subcutaneous pen injector ADMINISTER 0.75 MG UNDER THE SKIN EVERY WEEK Active fexofenadine (PRASHANT) 180 mg tablet fexofenadine 180 mg tablet Active fluticasone HFA (Flovent HFA) 110 mcg/actuation inhaler Flovent HFA 110 mcg/actuation aerosol inhaler Active fluticasone HFA (Flovent HFA) 220 mcg/actuation inhaler Flovent HFA 220 mcg/actuation aerosol inhaler Active fluticasone propionate (FLONASE) 50 mcg/actuation nasal spray Administer 1 spray into each nostril 2 (two) times a day. Active fluticasone furoate-vilante roL (BREO ELLIPTA) 100-25 mcg/dose inhaler 1 (one) time each day. Active lisinopril-hydr oCHLOROthiazide (PRINZIDE,ZESTO RETIC) 20-12.5 mg per tablet Take 1 tablet by mouth 1 (one) time each day. Active metFORMIN (GLUCOPHAGE) 1,000 mg tablet Take 1 tablet (1,000 mg total) by mouth. Active zafirlukast (ACCOLATE) 20 mg tablet Take 1 tablet (20 mg total) by mouth. 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] from Last 3 Months Social History Tobacco Use Types Packs/Day Years Used Date Smoking Tobacco: Never Smokeless Tobacco: Never Alcohol Use Standard Drinks/Week Comments Yes 0 (1 standard drink = 0.6 oz pur e alcohol) Sex and Gender Information Value Date Recorded Sex Assigned at Not on file Legal Sex Male 9:42 PM EST Gender Identity Not on file Sexual Orientation Not on file Obstetrics History Last Filed Vital Signs Vital Sign Reading Time Taken Comments Blood Pressure - - Pulse - - Temperature - - Respiratory Rate - - Oxygen Saturation - - Inhaled Oxygen Concentration - - Weight 93.4 kg (206 lb) 10/29/2024 1:37 PM EST Height 170.2 cm (5' 7.01 ) 10/29/2024 1:37 PM ES T Body Mass Index 32.26 10/29/2024 1:37 PM EST Plan of Treatment Upcoming Encounters Date Type Department Care Team ([facility] st Contact Info) Description 02/11/2025 1:30 PM EDT Office Visit Orthopedic Surgery - [place] [address] [phone] Gaurav Montgomery, DPM [address] [address] Health Maintenance Due Date Last Done Comments Diabetes: Annual GFR (Glomerular Filtration Rate) 1964 Diabetes: Annual Foot Exam 1974 Diabetes: Annual Retina Eye Exam 1974 Zoster Vaccines (1 of 2) 2014 Pneumococcal Vaccine: 50+ Years (2 of 2 - PCV) 06/06/2022 06/06/2021 Pneumococcal Vaccine: Pediatrics (0 to 5 Years) and At-Risk Patients (6 to 64 Years) (2 of 2 - PCV) 06/06/2022 06/06/2021 Cholesterol Screening (Lipid Panel) 11/06/2022 Colorectal Cancer Screening: Colonoscopy 11/06/2022 Depression Screening 11/06/2022 HIV Screening 11/06/2022 Hepatitis C Screening 11/06/2022 Social Influencers of Health Screening 11/06/2022 RSV Immunization Patients 60+ Years Old (1 - Risk 60-74 years 1-dose series) 2024 COVID-19 Vaccine ( season) 2024 05/18/2022, 10/24/2021, 04/08/2021, Additional history exists Influenza Vaccine (#1) 2024 3, 08/17/2022, 08/10/2022, Additional history exists Diabetes: Annual Urine Albumin-Creatinine Ratio (uACR) 10/29/2024 Diabetes: Blood Sugar Control Test (HGBA1C) 10/29/2024 Hypertension/CHF/CAD Annual BMP Blood Test 10/29/2024 DTaP,Tdap,and Td Vaccines (2 - Td or Tdap) 05/26/2031 05/26/2021 HIB Vaccines Aged Out No longer eligi ble based on patient's age to complete this topic HPV Vaccines Aged Out No longer eligi ble based on patient's age to complete this topic Hepatitis A Vaccines Aged Out No long er eligible based on patient's age to complete this topic Hepatitis B Vaccines Aged Out No long er eligible based on patient's age to complete this topic IPV Vaccines Aged Out No longer eligi ble based on patient's age to complete this topic MMR Vaccines Aged Out No longer eligi ble based on patient's age to complete this topic Meningococcal ACWY Vaccine Aged Out N o longer eligible based on patient's age to complete this topic Meningococcal B Vacine Aged Out No lo nger eligible based on patient's age to complete this topic RSV Immunization Patients Under 20 months Aged Out No longer eligible based on patient's age to complete this topic Varicella Vaccines Aged Out No longer eligible based on patient's age to complete this topic Procedures Procedure Name Priority Date/Time Associated Diagnosis Comments XR FOOT 3+ VIEWS BILAT Routine 10/29/2024 1:30 PM EST Foot pain, bilateral from Last 3 Months Results * XR Foot 3+ Views bilat (10/29/2024 1:30 PM EST) Anatomical Region Laterality Modality Lower Extremities, Foot Bilateral Computed Radiography Narrative 10/29/2024 1:38 PM EST Right foot ??3 views No fracture. No radiopaque foreign ?joint spaces ? Arthritis mild ? Foot position rectus Normal talus navicular position normal calcaneal inclination normal symes line talus navicular joint to calcaneal cuboid joint Left foot 3 views No fracture. No radiopaque foreign ?joint spaces ? Arthritis mild ? Foot position rectus Normal talus navicular position normal calcaneal inclination normal symes line talus navicular joint to calcaneal cuboid joint Gaurav Montgomery DPNaz IMG XR PROCEDURES Final R esult from Last 3 Months Insurance [facility] [address] [place] [address] Care Teams Electric Powerline Examiner Relationship Specialty Start Date End Date Jj Carlos DO 6 [facility] [place], [place] PCP - General Internal Medicine 11/04/20
--- OUTSIDE RECORDS SUMMARY | 2025-01-22 09:10 | XMS_ITS | Data Portability ---
Author Organization [place] - [facility], Allergy Address [address] [place] [phone] Care Team Providers Care Byproducts Extractor Name Role Phone NICK MONCADA Primary Care Provider Assessment No assessment recorded. Plan of Treatment Reminders Order Date Submit Date Provider Last Modified By Organization Details Last Modified Time Details Appointments None recorded. Lab None recorded. Referral None recorded. Procedures None recorded. Surgeries None recorded. Imaging CT, neck, soft tissue, w/ contrast - left vocal cord paralysis, Will exclude neoplastic process affecting the recurrent laryngeal nerve with CT neck and chest and plan f/u thereafter. 2024 025 [facility], [address] [place] [address], [address], 12:54:24 CT, chest, w/ contrast - left vocal cord paralysis, Will exclude neoplastic process affecting the recurrent laryngeal nerve with CT neck and chest and plan f/u thereafter. 2024 025 [facility], [address] [place] [address], [address], 17:54:22 Medication Orders None recorded. Patient TargetsNo targets recorded. Patient InstructionsNo instructions recorded. Reason for Referral None Reported. Results Created Date Observation Date Name Description Value Unit Range Abnormal Flag Note LastModifiedBy Organization Detail LastModifiedTime 12/30/1912/27/2024 CT, chest , w/ contr ast No observ ation record ed. [email or web address] [address], [address], 01/01/2025 10:34:02 12/31/19 25 12/27/2024 CT, neck, soft tissu e, w/ contr ast No observ ation record ed. [address], [address], 01/01/2025 10:34:03 Result Notes None recorded. Problems Name Problem SNOMED Code Status Onset Date Resolution Date Notes Provider Name and Address Organization Details Recorded Time Dyspnea 182168960 Active 025 BENNY Carmona MD [address] [address], [place], [phone], [facility] - [facility] 12:01:14 Moderate persistent asthma 300005715 Active 025 BENNY Carmona MD [address] [place] [address], [place], [phone], [facility] - [facility] 12:01:42 Paralysis of left vocal cord 257805800 Active 025 BENNY Carmona MD [address] [place] [address], [place], [phone], [facility] 12:07:08 Problem Notes None recorded. Procedures Surgical History Date Name Laterality Status Provider Name and Address Organization Details Recorded Time 12/03/2024 FFL_RE completed BENNY MIGUEL MD [address] [place] [address], [phone], [facility] 12/03/2024 12:07:52 Imaging Results Imaging Date Name Status LastModified by Organiz ation Details LastModified Time 12/27/2024 CT, chest, w/ contrast completed [address], [address], 01/01/2025 10:34:02 12/27/2024 CT, neck, soft tissue, w/ contrast completed [address], [address], 01/01/2025 10:34:03 Procedure Notes None recorded. Medical Equipment None Reported. Allergies No known drug allergies Medications Name Sig Start Date Stop Date Status Note LastModified by Organization Details LastModified Time atorvastati n 40 mg tablet TAKE 1 TABLET BY MOUTH EVERY DAY active Not Available Not Available No t Available lisinopril 20 mg-hydrochl orothiazide 12.5 mg tablet TAKE 2 TABLETS BY MOUTH EVERY DAY active Not Available Not Available No t Available amlodipine 10 mg tablet TAKE 1 TABLET BY MOUTH EVERY DAY active Not Available Not Available No t Available metformin 1,000 mg tablet TAKE 1 TABLET BY MOUTH TWICE DAILY active Not Available Not Available No t Available escitalopra m 10 mg tablet TAKE 1 TABLET BY MOUTH EVERY DAY active Not Available Not Available No t Available escitalopra m 5 mg tablet TAKE 1 TABLET BY MOUTH EVERY DAY 12/03 completed Not Available Not Available Not Available Trulicity 1.5 mg/0.5 mL subcutaneou s pen injector ADMINISTE R 1.5 MG UNDER THE SKIN 1 TIME EVERY WEEK active Not Available Not Available No t Available Trulicity 3 mg/0.5 mL subcutaneou s pen injector ADMINISTE R 3 MG UNDER THE SKIN EVERY WEEK DIRECTED 12/03 completed Not Available Not Available Not Available Vitals Date Recorded Body height Body weight Provider Name and Address Organization Details Last Updated DateTime 12/03/2024 177.8 cm 34406.25 g Mary Bah [place] - [facility] 12/03/2024 11:33:53 Social History None recorded. Functional Status None recorded. Mental Status None recorded. Family History Nothing Reported. Medical History Condition Response Diabetes Y Arthritis Y Hypertension Y Asthma Y Sleep Disorder Y Past Encounters Encounter ID Performer Location Encounter Start Date Encounter Closed Date Diagnosis/Indication Diagnosis SNOMED-CT Code Diagnosis ICD10 Code Diagnosis Note [id number] BENNY MIGUEL MD [facility] on [address] [place] [address] 12/03/2024 11:03:21 12/03/2024 12:43:38 Dyspnea 499924665 R06.00 defer to pulmonary, VC paralysis should not be impacting breathing Moderate p ersistent asthma 214146311 J45.40 defer to pulmonary, VC paralysis should not be impacting breathing Paralysis of left vocal cord 862097409 J38.01 may explain PFT abnormalit y as limited abduction of left cord. Will exclude neoplastic process affecting the recurrent laryngeal nerve with CT neck and chest and plan f/u thereafter . Health Concerns Section Related Observation LastModified by Organization Detai ls LastModified Time None Recorded Concern Status LastModified by Organization Details LastModified Time None Recorded Advance Directives Directive None Recorded Payers None recorded. 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 He saw Dr. Schwarz in pulmonology. He reports his breathing is slightly better but he has problems off and on. Hasn't used his inhaler recently because he has been doing better. No voice change and dysphagia. He does not smoke. BENNY MIGUEL MD [address] [place] [address], [phone] - [facility] 12/03/2024 12:10:17
--- OUTSIDE RECORDS SUMMARY | 2025-01-22 09:10 | XMS_ITS | Continuity of Care Document ---
Author Organization [facility], [facility] Address [address] [facility] [place] [address] [place] [address] Assessment Encounter Date Assessment Date Assessment LastModified by Organization Details LastModified Time 12/24/2024 12/24/2024 [id number] [place] [id number] (FO[employer] CR[employer] F[employer] HAND) MDM MODERATE MUST MEET 2 OUT OF [...] Details Appointments FOLLOW UP 15 2024 01:30P M DR MONCADA Not available Not available Not available Lab HbA1c (hemoglo bin A1c), blood 2024 025 [facility], [address] [place] [address], [place], [address], 12/24/2024 13:56:18 Referral None recorded . Procedures None recorded . Surgeries None recorded . Imaging None recorded . Medication Orders None recorded . Patient TargetsNo targets recorded. Patient Instructions Encounter Date Encounter Id Patient Instructions Last Modified By Organization Details Last Modified Time 12/24/2024 [id number] pulse oximetry* Not available 12/24/2024 13:50:20 learning about type 2 diabetes Not available 12/24/2024 13:55:10 type 2 diabetes: care instructions Not available 12/24/2024 13:55:10 Reason for Referral None Reported. Results Created Date Observation Date Name Description Value Unit Range Abnormal Flag Note LastModifiedBy Organization Detail LastModifiedTime 12/24/1912/24/2024 pulse oxime try* Result 96 Not Available [facility] Internal [facility] [address] [facility] [address], [place], [address], 12/21/2024 08:51:27 Result Notes None recorded. Problems Name Problem SNOMED Code Status Onset Date Resolution Date Notes Provider Name and Address Organization Details Recorded Time Sleep apnea 67263642 Active 2017 Diann rosas [facility] Internal [facility] 4 12:22:26 Retinopa thy due to diabetes mellitus 9824911 Active 2018 Diann rosas [facility] 4 12:22:26 Neuropat hy due to diabetes mellitus 701891062 Active 2018 Diann rosas [facility] 4 12:22:26 Neuropat hic ulcer of foot due to diabetes mellitus 726826137 Active 2019 Diann rosas [facility] 4 12:22:26 Pain in right foot 9669673623 95926 Active 2022 Not Available [facility] 3 22:28:58 Anxiety 77824313 Active 2022 Diann rosas [facility] 4 12:22:26 Chronic ulcer of lower extremit y 41189541 Active 2023 Diann rosas [facility] 4 12:22:26 Irritabi lity and anger 652981312 Active 2023 Jj Moncada DO [address] [facility], [place], [address], [facility] [place] Internal [facility] 4 14:38:27 Vocal cord paralysi s 264312471 Active 2024 Jj Moncada, [address], [address], [facility] [place] Internal [facility] 5 13:51:41 Vocal cord paralysi s 309452842 Active 2024 Jj Moncada, DO [address] [place] [address], [address], [facility] 5 13:52:26 Asthma 657201286 [facility] 12:22:26 [facility] hyperten vega 59915463 [facility] 12:22:26 Type 2 diabetes mellitus 23477041 Active 2017 [facility]opa [facility] 12:22:26 Impaired fasting glycemia 137185808 Completed 201703/14/2020 Kimmie Tovar [facility] 0 15:26:06 Mixed hyperlip idemia 556102961 Active 2017 [facility] 12:22:26 Notes:Some problems listed i n Documents: #[id number], #[id number] could not be added to this patient's chart. Please review these documents and add these problems to the patient's chart manually as needed. Problem Notes None recorded. Medical Equipment None Reported. [...] Not Available Not Available Not Available Afluria 5218-8332 (PF) 45 mcg(15 mcg x 3)/0.5 mL intramuscul ar syringe 04/10 completed Not Available Not Available Not Available Trelegy Ellipta 100 mcg-62.5 mcg-25 mcg powder for inhalation Inhale 1 puff every day by inhalatio n route. 08/20 completed Not Available Not Available Not Available Fluzone Quad (PF) 60 mcg(15 mcgx4)/0.5 mL intramuscul ar syringe 03/07 completed Not Available Not Available Not Available Afluria Qd 2018- (36 mos up)(PF)60 mcg (15 mcg x4)/0.5 mL IM syringe 03/14 completed Not Available Not Available Not Available Afluria Qd (36 mos up)(PF)60 mcg (15 mcg x4)/0.5 [...] Updated DateTime 5 177.8 cm 29.7 kg/m2 83299.6 2 g 86 /min 96 % 96 % 130 mm[Hg] 66 mm[Hg] [facility] 5 13:28:12 Social History Question Answer Notes LastModified by Cynvecizat ion Details LastModified Time Tobacco Smoking Status Never Smoker Not Available [facility] 09/30/2020 03:36:24 What Was The Date Of Your Most Recent Tobacco Screening? 12/24/2024 [email or web address] Information not available 12/24/2024 Do You Or [...] 50 mcg/0.25mL dose 1 completed Not Available [facility] 07/10/2023 22:28:58 Influenza, split virus, quadrivalent, preservative 1 completed Not Available [facility] 07/10/2023 22:28:58 COVID-19, mRNA, LNP-S, PF, 30 mcg/0.3 mL dose 2 completed Not Available [facility] 07/10/2023 22:28:58 pneumococcal polysaccharide PPV23 1 completed Not Available [facility] 07/10/2023 22:28:58 influenza, unspecified formulation 2 completed Not Available [facility] 07/10/2023 22:28:58 Influenza, split virus, quadrivalent, preservative 0 completed Not Available [facility] 07/10/2023 22:28:58 Influenza, split virus, quadrivalent, preservative 0 completed Not Available [facility] 07/10/2023 22:28:58 Influenza, split virus, quadrivalent, preservative 0 completed Not Available [facility] 07/10/2023 22:28:58 Influenza, split virus, quadrivalent, preservative 8 completed Not Available [facility] 07/10/2023 22:28:58 COVID-19, mRNA, LNP-S, PF, 100 mcg/0.5mL dose or 50 mcg/0.25mL dose 1 completed Not Available [facility] 07/10/2023 22:28:58 COVID-19, mRNA, LNP-S, PF, 100 mcg/0.5mL dose or 50 mcg/0.25mL dose 1 completed Not Available [facility] 07/10/2023 22:28:58 Past Encounters Encounter ID Performer Location Encounter Start Date Encounter Closed Date Diagnosis/Indication Diagnosis SNOMED-CT Code Diagnosis ICD10 Code Diagnosis Note [id number] DO [facility] [address] [facility],[place] [address] 12/24/2024 13:22:22 12/24/2024 14:00:37 Asthma 609718184 J45.20 is asymptomat ic latelyseei ng dr thornton in september 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 302 997866 J38.01 will follow as necess given his voice is fine Type 2 farzaneh betes mellitus 06716283 E11.9 a1c is 8.8 was 7.7 he is walking which is saving him but he needs to get the sugar better controlled and control the night feedings Health Concerns Section Related Observation LastModified by Organization Detai ls LastModified Time None Recorded Concern Status LastModified by Organization Details LastModified Time None Recorded Payers Encounter Date Sequence Insurance Name Policy Number Policy Lindquist Covered Member ID Lindquist Member ID Guarantor Name 12/24/2024 1 [facility] [id number] Andres Faust [id number] Andres Faust Notes Date Note Type Note Provider Name a nd Address Organization Details Recorded Time 12/24/2024 text/html here for rechkhas evid of left laryngeal n ? damage vs pure vocal cord paresis Jj Moncada, [address] [place], [address], [facility] [place], [facility] 12/24/2024 13:56:44
[2025-01-22 13:43] LABS: Estimated Average Glucose 246 mg/dL; Hemoglobin A1C 346.4311 umol/L; Hemoglobin A1c % 10.2 % (<6.0); Total Hemoglobin (HGBA1C) 3916.4515 umol/L
[2025-01-22 14:07] LABS: Alanine Aminotransferase 44 U/L (0-40); Albumin Level 4.2 g/dL (3.5-5.0); Alkaline Phosphatase 83 U/L (39-117); Anion Gap 12 (12-20); Aspartate Amino Transferase 26 U/L (5-37); Bilirubin Total 0.7 mg/dL (0.0-1.0); Blood Urea Nitrogen 20 mg/dL (9-16); Calcium 9.2 mg/dL (8.4-10.2); Carbon Dioxide 28 mmol/L (22-29); Chloride 101 mmol/L (96-108); Cholesterol 121 mg/dL (<200); Estimated Glomerular Filt Rate > 60; Glucose Random 311 mg/dL (60-115); HDL Cholesterol 29 mg/dL (>40); LDL Cholesterol Calculated 71 mg/dL (<100); Potassium 4.1 mmol/L (3.3-5.1); Sodium 137 mmol/L (135-145); Total Protein 7.5 g/dL (6.5-8.0); Triglycerides 106 mg/dL (<150)
== END 2025-01-22 08:39 | disposition home or self-care (01) ==
LOC: HO.MANLDS 08:38
PROVIDERS: Visit Provider Internal Medicine
DX: E11.9 Type 2 diabetes mellitus without complications (principal)
CPT/HCPCS: 36415; 80053; 80061; 83036

== ENCOUNTER 2025-05-03 14:08 | Outpatient (REF) | payer OTHER, SELFPAY ==
--- OUTSIDE RECORDS SUMMARY | 2025-05-03 14:10 | XMS_ITS | Data Portability ---
Author Organization [place] - [facility], Allergy Address [address] [place] [address] Care Team Providers Care Medical Review Coordinator Name Role Phone NICK MONCADA Primary Care Provider [phone] Assessment No assessment recorded. Plan of Treatment [...] chest and plan f/u thereafter. 2024 025 [facility], [address] [place] [address], [address], 12:54:24 CT, chest, w/ contrast - left vocal cord paralysis, Will exclude neoplastic process affecting the recurrent laryngeal nerve with CT neck and chest and plan f/u thereafter. 2024 025 [facility], [address] [place] [address], [address], 17:54:22 Medication Orders None recorded. Patient TargetsNo targets recorded. Patient InstructionsNo instructions recorded. Reason for Referral None Reported. Results Created Date Observation Date Name Description Value Unit Range Abnormal Flag Note LastModifiedBy Organization Detail LastModifiedTime 12/30/1912/27/2024 CT, chest , w/ contr ast No observ ation record ed. [email or web address] [address], [address], 01/01/2025 10:34:02 12/31/19 25 12/27/2024 CT, neck, soft tissu e, w/ contr ast No observ ation record ed. [facility] [address], [place], [address], 01/01/2025 10:34:03 Result Notes None recorded. Problems Name Problem SNOMED Code Status Onset Date Resolution Date Notes Provider Name and Address Organization Details Recorded Time Dyspnea 091071105 Active 025 BENNY Carmona MD 100 [facility],[address] [address], [place], [address], [facility] 12:01:14 Moderate persistent asthma 835277653 Active 025 BENNY Carmona MD [address] [address], [place], [address], [facility] 12:01:42 Paralysis of left vocal cord 264414808 Active 025 BENNY Carmona MD [address] [place] [address], [place], [address], [facility] 12:07:08 Problem Notes None recorded. Procedures Surgical History Date Name Laterality Status Provider Name and Address Organization Details Recorded Time 12/03/2024 FFL_RE completed BENNY MIGUEL MD [address] [place] [address], [phone], [facility] 12/03/2024 12:07:52 Imaging Results None recorded. Procedure Notes None recorded. Medical Equipment None [...] Details Last Updated DateTime 12/03/2024 177.8 cm [address].25 g Mary Bah [place] [facility] 12/03/2024 11:33:53 Social History None recorded. Functional Status None recorded. Mental Status None recorded. Family History Nothing Reported. Medical History Condition Response Arthritis Y Asthma Y Sleep Disorder Y Diabetes Y Hypertension Y Past Encounters Encounter ID Performer Location Encounter Start Date Encounter Closed Date Diagnosis/Indication Diagnosis SNOMED-CT Code Diagnosis ICD10 Code Diagnosis Note [id number] BENNY MIGUEL MD [facility] on [address] [place] [address] 12/03/2024 11:03:21 12/03/2024 12:43:38 Dyspnea 199261797 R06.00 defer to pulmonary, VC paralysis should not be impacting breathing Moderate p ersistent asthma 713539025 J45.40 defer to pulmonary, VC paralysis should not be impacting breathing Paralysis of left vocal cord 745953668 J38.01 may explain PFT abnormalit y as limited abduction of left cord. Will exclude neoplastic process affecting the recurrent laryngeal nerve with CT neck and chest and plan f/u thereafter . Health Concerns Section Related Observation LastModified by Organization Detai ls LastModified Time None Recorded Concern Status LastModified by Organization Details LastModified Time None Recorded Advance Directives Directive None Recorded Payers Insurance Date Sequence Insurance Name Policy Number Policy Lindquist Covered Member ID Lindquist Member ID Guarantor Name 12/03/[address] [facility] [place] [id number] Andres Faust [id number] Andres Faust 12/27/2024 1 R [id number] Andres Faust [id number] Andres Faust 03/21/2025 3 [place] Andres Faust [id number] Andres Faust 12/27/2024 2 [facility] (MEDICAID HMO) [id number] Andres Faust [id number] Andres Faust Notes Date Note Type Note [...] He does not smoke. BENNY MIGUEL MD [address] [place] [address], [phone], [place] [facility] 12/03/2024 12:10:17
[2025-05-04 03:22] LABS: Estimated Average Glucose 223 mg/dL; Hemoglobin A1c % 9.4 % (<6.0)
== END 2025-05-03 14:09 | disposition home or self-care (01) ==
LOC: HO.MANLDS 14:08
PROVIDERS: Visit Provider Internal Medicine
DX: E11.9 Type 2 diabetes mellitus without complications (principal)
CPT/HCPCS: 36415; 83036

== ENCOUNTER 2025-09-24 08:20 | Outpatient (REF) | payer OTHER, SELFPAY ==
--- OUTSIDE RECORDS SUMMARY | 2025-09-24 08:56 | XMS_ITS | Data Portability ---
Author Organization [place] - [facility], Allergy Address [address] [address] Care Team Providers Care Asic Design Engineer Name Role Phone NICK MONCADA Primary Care [...] chest and plan f/u thereafter. 2024 025 [facility], [address] [place] [address], [address], 12:54:24 CT, chest, w/ contrast - left vocal cord paralysis, Will exclude neoplastic process affecting the recurrent laryngeal nerve with CT neck and chest and plan f/u thereafter. 2024 025 [facility], [address] [place] [address], [address], 17:54:22 Medication Orders None recorded. Patient TargetsNo targets recorded. Patient InstructionsNo instructions recorded. Reason for Referral None Reported. Results Created Date Observation Date Name Description Value Unit Range Abnormal Flag Note LastModifiedBy Organization Detail LastModifiedTime 12/30/1912/27/2024 CT, chest , w/ contr ast No observ ation record ed. [email or web address] [address], [address], 01/01/2025 10:34:02 12/31/19 25 12/27/2024 CT, neck, soft tissu e, w/ contr ast No observ ation record ed. [address], [address], 01/01/2025 10:34:03 Result Notes None recorded. Problems Name Problem SNOMED Code Status Onset Date Resolution Date Notes Provider Name and Address Organization Details Recorded Time Dyspnea 571347325 Active 025 BENNY Carmona MD [address] [address], [place], [address], [facility] 12:01:14 Moderate persistent asthma 363525218 Active 025 BENNY Carmona MD [address] [address], [place], [address], [facility] 12:01:42 Paralysis of left vocal cord 621092237 Active 025 BENNY Carmona MD [address] [address], [place], [address], [facility] 12:07:08 Problem Notes None recorded. Procedures Surgical History Date Name Laterality Status Provider Name and Address Organization Details Recorded Time 12/03/2024 FFL_RE completed BENNY MIGUEL MD [address], [address], [facility] 12/03/2024 12:07:52 Imaging Results None recorded. Procedure [...] Details Last Updated DateTime 12/03/2024 177.8 cm 59[address].25 g Mary Bah [place] [facility] 12/03/2024 11:33:53 Social History None recorded. Functional Status None recorded. Mental Status None recorded. Family History Nothing Reported. Medical History Condition Response Diabetes Y Arthritis Y Hypertension Y Asthma Y Sleep Disorder Y Past Encounters Encounter ID Performer Location Encounter Start Date Encounter Closed Date Diagnosis/Indication Diagnosis SNOMED-CT Code Diagnosis ICD10 Code Diagnosis IMO Codes Diagnosis Note [id number] BENNY MIGUEL MD [facility] on [address] [place] [address] 12/03/2024 11:03:21 12/03/2024 12:43:38 Dyspnea 378154043 R06.00 defer to pulmonary, VC paralysis should not be impacting breathing Moderate p ersistent asthma 135770906 J45.40 defer to pulmonary, VC paralysis should not be impacting breathing Paralysis of left vocal cord 713427806 J38.01 may explain PFT abnormalit y as [...] ID Lindquist Member ID Guarantor Name 12/03/[address] [place] [address] ([facility] [place] [id number] Andres Faust [id number] Andres Faust 12/27/2024 1 R [id number] Andres Faust [id number] Andres Faust 03/21/2025 3 [place] Andres Faust [id number] Andres Faust 12/27/2024 2 [facility] (MEDICAID HMO) [id number] Andres Faust [id number] Andres Faust Notes Date Note Type Note Provider Name and Address Organization Details Recorded Time 12/03/2024 text/html ROS as noted in the HPI 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 He saw Dr. Schwarz in pulmonology. He reports his breathing is slightly better but he has problems off and on. Hasn't used his inhaler recently because he has been doing better. No voice change and dysphagia. He does not smoke. BENNY MIGUEL MD [address] [place] [address], [address], [facility] - [facility] 12/03/2024 12:10:17
--- OUTSIDE RECORDS SUMMARY | 2025-09-24 08:56 | XMS_ITS | Clinical Summary ---
Author Organization [facility] Address 175 [place] [address] Phone Care Team Providers Care Dictionary Editor Name Role Phone Jj Carlos DO Primary Care Provider [phone] Allergies No known active allergies Medications albuterol [...] each nostril 2 (two) times a day. 2 Active fluticasone furoate-vilante roL (BREO ELLIPTA) 100-25 mcg/dose inhaler 1 (one) time each day. Active lisinopril-hydr oCHLOROthiazide (PRINZIDE,ZESTO RETIC) 20-12.5 mg per tablet Take 1 tablet by mouth 1 (one) time each day. Active metFORMIN (GLUCOPHAGE) 1,000 mg tablet Take 1 tablet (1,000 mg total) by mouth. Active zafirlukast (ACCOLATE) 20 mg tablet Take 1 tablet (20 mg total) by mouth. Active ammonium lactate (AmLactin) 12 % lotion Apply topically if needed for dry skin. 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]; Corns and callosities; Verruca plantaris; Dermatophytosis of nail from Last 3 Months Social History Tobacco [...] - - Weight 93.4 kg (206 lb) 02/11/2025 1:20 PM EDT Height 170.2 cm (5' 7.01 ) 02/11/2025 1:20 PM ED T Body Mass Index 32.26 02/11/2025 1:20 PM EDT Plan of Treatment Upcoming Encounters Date Type Department Care Team (Late st Contact Info) Description 01/22/2026 1:00 PM EST Office Visit Orthopedic Surgery - [place] [address] [place] [address] Gaurav Montgomery, DPM [address] [place] [address] Health Maintenance Due Date Last Done Comments Colorectal Cancer Screening: Colonoscopy 1964 Diabetes: Annual GFR (Glomerular Filtration Rate) 1964 Diabetes: Annual Foot Exam 1974 Diabetes: Annual Retina Eye Exam 1974 RSV Immunization Adult Patients (1 - Risk 50-74 years 1-dose series) 2014 Zoster Vaccines (1 of 2) 2014 Cholesterol Screening (Lipid Panel) 11/06/2022 HIV Screening 11/06/2022 Hepatitis C Screening 11/06/2022 Social Influencers of Health Screening 11/06/2022 Diabetes: Annual Urine Albumin-Creatinine Ratio (uACR) 10/29/2024 Diabetes: Blood Sugar Control Test (HGBA1C) 10/29/2024 Hypertension/CHF/CAD Annual BMP Blood Test 10/29/2024 Depression Screening 11/28/2024 COVID-19 Vaccine ( - season) 2025 05/18/2022, 10/24/2021, 04/08/2021, Additional history exists Influenza Vaccine (#1) 2025 , 10/25/2023, 08/17/2022, Additional history exists DTaP,Tdap,and Td Vaccines (2 - Td or Tdap) 05/26/2031 05/26/2021 Pneumococcal Vaccine: 50+ Years Completed 12/20/2024, 06/06/2021 HIB Vaccines Aged Out No longer eligi [...] age to complete this topic Meningococcal B Vaccine Aged Out No l onger eligible based on patient's age to complete this topic RSV Immunization Patients Under 20 months Aged Out No longer eligible based on patient's age to complete this topic Varicella Vaccines Aged Out No longer eligible based on patient's age to complete this topic Insurance [facility] Care Teams Dictionary Editor Relationship Specialty Start Date End Date Jj Carlos DO [address] [facility] [address] [place], [place] PCP - General Internal Medicine 11/04/20
--- OUTSIDE RECORDS SUMMARY | 2025-09-24 08:56 | XMS_ITS | Encounter Summary ---
Author Organization [facility] Address [address] [place] [address] Phone Care Team Providers Care Profile Shaper Operator Name Role Phone Slade, Marylou ALKA Primary Care Provider [phone] Jj Carlos DO Primary Care Provider [phone] Jj Carlos DO Unavailable Reason for Referral * - Closed Specialty Diagnoses / Procedures Referred By Debi barnett Referred To Contact Diagnoses Chest pain, unspecified type Procedures Stress Test Exercise Jj Carlos DO Phone: tel: fax: [email or web address] Referral ID Status Reason Start Date Expiration Date Visits Re quested Visits Authorized [id number] Closed 07/03/2020 07/03/2021 1 1 Encounter Details Date Type Department Care Team (Late st Contact Info) Description 07/03/2020 Transcribe Orders Virtual Department [address] [place] [address] Jj Carlos DO [address] [place] [address] [email or web address] Chest pain, unspecified type (Primary Dx) Social History Tobacco Use Types Packs/Day Years Used Date Smoking Tobacco: Never Assessed Sex and Gender Information Value Date Recorded Sex Assigned at Not on file Legal Sex Male 10:33 PM EDT Gender Identity Not on file Sexual Orientation Not on file documented as of this encounter Plan of Treatment Not on file documented as of this encounter Results * Stress Test Exercise (07/23/2020 10:28 AM EDT) Max BP Systolic 160 mmHg [facility] Max BP Diastolic 66 mmHg [facility] Max HR 166 BPM [facility] Resting HR 91 BPM [facility] Resting BP Systolic 142 mmHg [facility] Resting BP Diastolic 86 mmHg [facility] Peak METS 9.9 METS [facility] Peak HR 164 BPM [facility] Anatomical Region Laterality Modality Heart Other 07/23/2020 10:5 1 AM EDT 07/23/2020 11:55 AM EDT Narrative 07/23/2020 1:01 PM EDT Response to Stress The patient exercised for minutes seconds, achieving 9.9 METS at peak exercise. Baseline blood pressure was 142/86 mmHg, and baseline heart rate was 91 bpm. The patient achieved a peak heart rate of 164 bpm, which is% of their maximum predicted heart rate. REPORT - Pt exercised for 8:01 min on a SIMA protocol achieving 10.1 METS. Test terminated due to fatigue. Baseline resting HR was 87. Max heart rate achieved was 166 (101% MPHR). 1. EKG - Baseline EKG showed normal sinus rhythm. No ischemic EKG changes with exercise. 2. SYMPTOMS - no chest pain 3. EXERCISE PHYSIOLOGY - normal BP response to exercise. Normal functional capacity for age. 4. ARRHYTHMIAS - few PVCs Conclusion - normal stress test. Alicia Wilson CNC TECHNICIAN with Dr Barton . Jj Carlos DO CV STRESS ORDERABLES Final Resul t documented in this encounter Visit Diagnoses Diagnosis Chest pain, unspecified type- Primary Chest pain, unspecified type documented in this encounter Care Teams Profile Shaper Operator Relationship Specialty Start Date End Date February, ALKA [address] [place] [address] [email or web address] PCP - General 12/01/17 07/22/20 Jj Carlos DO [address] [place] [address] [email or web address] PCP - General Internal Medicine 07/23/20 Jj Carlos DO [address] [place] [address] [email or web address] Insurance Assigned Provider 04/04/21 04/16/23 documented as of this encounter Additional Source Comments The information contained in this document represents components of the legal health record. It is not the complete legal health record.[facility]
--- OUTSIDE RECORDS SUMMARY | 2025-09-24 08:57 | XMS_ITS | Encounter Summary ---
Author Organization [facility] Address [address] [place] [address] Phone Care Team Providers Care Recruiting Associate Name Role Phone Slade Marylou ALKA Primary Care Provider + [phone] Bigda, Jj Macias DO Primary Care Provider [phone] Bigda, Jj Macias DO Unavailable Encounter Details Date Type Department Care Team (Latest Contact Info) Description 04/16/2019 Transcribe Orders Virtual Department [address] [place] [address] Tj Roman MD 22 [facility], [address] [address] [email or web address] Dyspnea, unspecified type (Primary Dx) Social History Tobacco [...] documented as of this encounter Results * XR CHEST PA AND LATERAL 2 VIEWS (04/19/2019 1:06 PM EDT) Anatomical Region Laterality Modality Chest Radiographic Rachel ging 04/19/2019 1:33 PM EDT Impressions 04/19/2019 1:35 PM EDT No acute pulmonary process or explanation for difficulty breathing is seen. S/S: Difficulty breathing, dyspnea POS - [id number] Narrative 04/19/2019 1:35 PM EDT COMPARISON: None FINDINGS: PA and lateral imaging of the chest is obtained. The heart size is normal. The lung castillo are clear. No pneumothorax or pleural fluid is evident. No hilar pathology is seen. The aortic contour is unremarkable. There are mild degenerative changes in the thoracic spine. Procedure Note Vamsi Arnold MD - 04/19/2019 COMPARISON: None FINDINGS: PA and lateral imaging of the chest is obtained. The heart size is normal. The lung castillo are clear. No pneumothorax or pleural fluid is evident. No hilar pathology is seen. The aortic contour is unremarkable. There are mild degenerative changes in the thoracic spine. IMPRESSION: No acute pulmonary process or explanation for difficulty breathing isseen. S/S: Difficulty breathing, dyspnea POS - [id number] Tj Roman MD IMG XR CHEST Final Result documented in this encounter Visit Diagnoses Diagnosis Dyspnea, unspecified type- Primary Dyspnea, unspecified type documented in this encounter Care Teams Recruiting Associate Relationship Specialty Start Date End Date February, ALKA [address] [place] [address] [email or web address] PCP - General 12/01/17 07/22/20 Jj Carlos DO [address] [place] [address] PCP - General Internal Medicine 07/23/20 Jj Carlos DO [address] [place] [address] Insurance Assigned Provider 04/04/21 04/16/23 documented as of this encounter Additional Source Comments The information contained in this document represents components of the legal health record. It is not the complete legal health record.[facility]
--- OUTSIDE RECORDS SUMMARY | 2025-09-24 08:57 | XMS_ITS | Encounter Summary ---
Author Organization [facility] Address [address] [place] [address] [place] [address] Phone Care Team Providers Care Processing Tech Name Role Phone Jj aCrlos DO Primary Care Provider [phone] Encounter Details Date Type Department Care Team (Late st Contact Info) Description 12/03/2024 Procedure Pass [facility], Ct Scan - [address] [address] Social History Tobacco Use Types Packs/Day Years Used Date Smoking Tobacco: Never Smokeless Tobacco: Never Education Answer Date Recorded Are you interested in more education? Not on milad e 03/25/2023 Are you concerned about learning? Not on file 03/25/2023 No 03/25/2023 No 03/25/2023 Digital Access Answer Date Recorded No 04/25/2023 No 04/25/2023 Reliable internet access at home? Not on file 04/25/2023 Device with a working camera? Not on file Sex and Gender Information Value Date Recorded Sex Assigned at Not on file Legal Sex Male 10:33 PM EDT Gender Identity Not on file Sexual Orientation Not on file documented as of this encounter Plan of Treatment Not on file documented as of this encounter Visit Diagnoses Not on filedocumented in this encounter Care Teams Processing Tech Relationship Specialty Start Date End Date Jj Carlos DO PCP - General Internal Medicine 07/23/20 documented as of this encounter Additional Source Comments The information contained in this document represents components of the legal health record. It is not the complete legal health record.[facility]
--- OUTSIDE RECORDS SUMMARY | 2025-09-24 08:57 | XMS_ITS | Clinical Summary ---
Author Organization [facility] Address [address] [facility] [address] [place] [address] Phone Care Team Providers Care Professor Of Violin Name Role Phone Anamena Jj Macias DO Primary Care Provider [phone] Allergies No known active allergies Medications metFORMIN (GLUCOPHAGE) 500 MG tablet Take 2 tablets by mouth 2 (two) times a day with meals. Active atorvastatin (LIPITOR) 40 MG tablet atorvastatin 40 mg tablet TAKE 1 TABLET BY MOUTH ONCE A DAY Active amLODIPine (NORVASC) 10 MG tablet amlodipine 10 mg tablet TAKE 1 TABLET BY MOUTH ONCE DAILY. Active albuterol 90 mcg/actuation inhaler albuterol sulfate HFA 90 mcg/actuation aerosol inhaler Active lisinopril-hydro CHLOROthiazide (PRINZIDE,ZESTOR ETIC) 20-12.5 mg per tablet lisinopril 20 mg-hydrochloroth iazide 12.5 mg tablet TAKE 2 TABLETS BY MOUTH EVERY DAY Active dulaglutide (TRULICITY) 0.75 mg/0.5 mL subcutaneous injection Trulicity 0.75 mg/0.5 mL subcutaneous pen injector ADMINISTER 0.75 MG UNDER THE SKIN EVERY WEEK Active escitalopram oxalate (LEXAPRO) 5 MG tablet Take 1 tablet by mouth daily. Active budesonide-formo terol 80-4.5 mcg/actuation inhalerIndicatio ns:Moderate persistent asthma without complication Inhale 2 puffs into the lungs 4 (four) times a day as needed. 10.2 g 5 Active Additional Information Patient not taking.Reported on 12/20/2024 escitalopram oxalate (LEXAPRO) 10 MG tablet Take 10 mg by mouth daily. 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 Orosco, 12/03/2024. Assessment & Plan (12/20/2024 11:41 AM EST): Seen by ENT, Dr. Orosco. He has been ordered for neck and chest CT scans. I have taken the liberty to order a BMP and have asked my helpdesk administrator staff to help schedule his cross-sectional imaging. Will defer further evaluation and management to ENT's expertise. Orders: Basic metabolic panel; Future Abnormal flow volume loop 10/25/2023 Assessment & Plan (12/20/2024 11:41 AM EST): Likely the result of left vocal cord paresis. Somewhat improved on recent spirometry testing. Monitor clinically. Assessment & Plan (10/25/2023 11:31 AM EST): Etiology for this is unclear. He agrees to referral to ENT. We will also repeat spirometry in 6 months. If ENT evaluation is unrevealing and abnormalities persist, could consider bronchoscopy as subsequent step. Seasonal allergic rhinitis due to pollen 022 Assessment & Plan (08/17/2022 3:53 PM EDT): Continue to monitor off zafirlukast given stable symptoms. I advised that he could use [id number] cetirizine or fexofenadine on an as-needed basis for management of mild allergic symptoms. Assessment & Plan (05/11/2022 10:42 AM EDT): We will try stopping zafirlukast. (No recent LFT on file.) Advised that he could use cetirizine (Zyrtec) or fexofenadine (Sandra) if allergic symptoms worsen off zafirlukast. Need for influenza vaccination 05/11/2022 Assessment & Plan (12/20/2024 11:41 AM EST): Orders: Influenza Vaccine 6MO+ Trivalent Preservative Free IM Assessment & Plan (08/17/2022 3:54 PM EDT): Is planning on receiving a bivalent mRNA COVID-19 booster sometime in the next several weeks. Assessment & Plan (05/11/2022 10:44 AM EDT): He is eligible for a second mRNA COVID-19 vaccine booster. I recommended that he pursue [employer] ( mix and match approach). 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 Given stability, normal spirometry and absence of asthma symptoms of concern, will defer further evaluation and management to PCP. He will return to see me on an as-needed basis. Assessment & Plan (10/25/2023 11:32 AM EST): We will transition from Breo to as needed low-dose Symbicort. If not covered by insurance, could consider AirSupra or as needed PAIGE + ICS. Repeat spirometry and exhaled nitric oxide measurements in 6 months. Assessment & Plan (08/17/2022 3:54 PM EDT): Doing well on low-dose Breo, which he likes better than Symbicort. We will continue this for now, and plan repeat spirometry and exhaled nitric oxide measurements in 1 year. We will reconvene thereafter. Influenza vaccination today. Assessment & Plan (05/11/2022 10:44 AM EDT): There are no PFT available for review today. We will order baseline spirometry and exhaled nitric oxide measurements and review these at his next visit here with me. I will obtain a baseline CBC with differential (looking at eosinophil count), IgE, mold and house dust panels. In terms of asthma management, he is not using a spacer with Symbicort and has not rinsing his mouth after use of inhaled corticosteroids. We will try to streamline his regimen with low-dose Breo, stopping Symbicort and stopping zafirlukast. (If Breo is not covered, we may need to submit a prior authorization.) Essential hypertension 04/10/2018 Impaired fasting glucose 04/10/2018 Mixed hyperlipidemia 04/10/2018 Type 2 diabetes mellitus 04/10/2018 Immunizations Immunization Administration Dates Next Due COVID-19 (Pre-09/19) Moderna Vaccine, mRNA, PF 04/08/2021,03/11/2021 INFLUENZA, SPLIT VIRUS, TRIVALENT PF 12/20/2024, 10/15/2015 Influenza Quadrivalent Preservative Free IM 09/29,08/17/2022,07/11/2018 Influenza Quadrivalent w/ Preservative IM 2019,12/07/2019 Pneumococcal conjugate PCV20 12/20/2024 Pneumococcal polysaccharide PPSV23 06/06/2021 Family History Medical History Relation Comments Stroke Brother Heart disease Father Parkinson's disease Mother Asthma Sister Relation Status Comments Brother Father Mother Sister Social History Tobacco Use Types Packs/Day Years [...] on file Sexual Orientation Not on file Last Filed Vital Signs Vital Sign Reading Time Taken Comments Blood Pressure 144/70 12/20/2024 11:03 AM EST Pulse 81 12/20/2024 11:03 AM EST Temperature 36.5 C (97.7 F) 12/20/2024 11:03 AM EST Respiratory Rate - - Oxygen Saturation 96% 12/20/2024 11:03 AM EST Inhaled Oxygen Concentration - - Weight 93.9 kg (207 lb) 12/20/2024 11:03 AM EST Height 177.8 cm (5' 10 ) 12/20/2024 11:03 AM EST Body Mass Index 29.7 12/20/2024 11:03 AM EST Plan of Treatment Health Maintenance Due Date Last Done Comments DEPRESSION SCREENING 1976 HEPATITIS C SCREENING 1982 HIV ONE-TIME SCREENING (18-65 YEARS) 1982 COLOGUARD 2009 COLONOSCOPY 2009 COLORECTAL CANCER SCREENING 2009 FIT TEST 2009 FOBT 2009 SIGMOIDOSCOPY 2009 VIRTUAL COLONOSCOPY 2009 RSV VACCINE (1 - Risk 50-74 years 1-dose series) 2014 ZOSTER VACCINES (1 of 2) 2014 DIABETIC EYE EXAM 05/11/2022 HEMOGLOBIN A1C 03/08/2023 09/07/2022 BLOOD PRESSURE 06/19/2025 12/20/2024 INFLUENZA VACCINE (#1) 2025 , 10/25/2023, 08/17/2022, Additional history exists COVID-19 VACCINE (2024- season) 2025 05/18/2022, 05/18/2022, 10/24/2021, Additional history exists CREATININE LEVEL 12/20/2025 12/20/2024 POTASSIUM LEVEL 12/20/2025 12/20/2024 Adult Td,Tdap Booster 05/26/2031 05/26/2021 PNEUMOCOCCAL VACCINES (50+ years) Completed 12/20/2024, 06/06/2021 SMOKING STATUS SCREENING (Once After 26 Yrs) Completed 12/20/2024 HEPATITIS A VACCINES Aged Out No long er eligible based on patient's age to complete this topic HIB VACCINES Aged Out No longer eligi ble based on patient's age to complete this topic MENINGOCOCCAL VACCINES (ACWY) Aged Out No longer eligible based on patient's age to complete this topic MENINGOCOCCAL VACCINES (B) Aged Out N o longer eligible based on patient's age to complete this topic Medical Devices Not on file Procedures Procedure Name Priority Date/Time Associated Diagnosis Comments BASIC METABOLIC PANEL Routine 12/20/2024 12:00 PM EST Paresis of left vocal cord from Last 3 Months or Most Recently Relevant to Health Maintenance Results * (ABNORMAL) Basic metabolic panel (12/20/2024 12:00 PM EST) SODIUM 139 133 - 146 mmol/L [facility] CHLORIDE 99 96 - 108 mmol/L [facility] POTASSIUM 3.7 3.3 - 5.1 mmol/L [facility] CO2 29 21 - 35 mmol/L [facility] BUN 17 6 - 19 mg/dL [facility] CREATININE 0.90 0.5 - 1.5 mg/dL [facility] GLUCOSE 310(H) 70 - 99 mg/dL [facility] CALCIUM 10.1 8.4 - 10.3 mg/dL [facility] EGFR 98 >59 mL/min/1.7 3m2 [facility] Comment:Estimated glomerular filtration rate calculated using the CKD-EPI refit equation. ANION GAP 15 10 - 20 mmol/L [facility] Blood 12/20/2024 12:0 0 PM EST 12/20/2024 12:04 PM EST us Brenton Schwarz MD, MS LAB BLOOD ORDERABLES Fin al Result [facility] [address] [place], [place] [id number] from Last 3 Months or Most Recently Relevant to Health Maintenance Insurance Care Teams Professor Of Violin Relationship Specialty Start Date End Date Jj Carlos DO [email or web address] PCP - General Internal Medicine 07/23/20 Additional Source Comments The information contained in this document represents components of the legal health record. It is not the complete legal health record.[facility]
--- OUTSIDE RECORDS SUMMARY | 2025-09-24 08:57 | XMS_ITS | Encounter Summary ---
Author Organization [facility] Address [address] [place] [address] Phone Care Team Providers Care Home Health Manager Name Role Phone Jj Carlos DO Primary Care Provider [phone] Jj Carlos DO Unavailable Encounter Details Date Type Department Care Team (Late st Contact Info) Description 08/10/2022 Transcribe Orders [facility] PFT Lab [address] [place] [address] Brenton Schwarz MD, MS [address] [address] [email or web address] Social History Tobacco Use Types Packs/Day Years Used Date Smoking Tobacco: Never Smokeless Tobacco: Never Sex and Gender Information Value Date Recorded Sex Assigned at Not on file Legal Sex Male 10:33 PM EDT Gender Identity Not on file Sexual Orientation Not on file documented as of this encounter Plan of Treatment Not on file documented as of this encounter Visit Diagnoses Not on filedocumented in this encounter Care Teams Home Health Manager Relationship Specialty Start Date End Date Jj Carlos DO PCP - General Internal Medicine 07/23/20 Jj Carlos DO [address] [place] [address] [place] [address] Insurance Assigned Provider 04/04/21 04/16/23 documented as of this encounter Additional Source Comments The information contained in this document represents components of the legal health record. It is not the complete legal health record.[facility]
--- OUTSIDE RECORDS SUMMARY | 2025-09-24 08:57 | XMS_ITS | Encounter Summary ---
Author Organization [facility] Address [address] [place] [address] [place] [phone] Phone Care Team Providers Care Bareback Rider Name Role Phone Jj Carlos DO Primary Care Provider [phone] Encounter Details Date Type Department Care Team (Late st Contact Info) Description 12/03/2024 Procedure Pass [facility], Ct Scan - [address] [address] Social History Tobacco Use Types Packs/Day Years [...] on filedocumented in this encounter Care Teams Bareback Rider Relationship Specialty Start Date End Date Jj Carlos DO PCP - General Internal Medicine 07/23/20 documented as of this encounter Additional Source Comments The information contained in this document represents components of the legal health record. It is not the complete legal health record.[facility]
--- OUTSIDE RECORDS SUMMARY | 2025-09-24 08:57 | XMS_ITS | Encounter Summary ---
Author Organization [facility] Address [address] [place] [address] Phone Care Team Providers Care Clearance Cutter Name Role Phone Jj Carlos DO Primary Care Provider [phone] Jj Carlos DO Unavailable Reason for Referral * Consultation (Elective) - Closed Specialty Diagnoses / Procedures Referred By Debi t Referred To Contact Pulmonary Disease Jj Carlos DO Phone: tel: fax: [email or web address] [facility] [address] [place] [address] Phone: tel: Referral ID Status Reason Start Date Expiration Date Visits Re quested Visits Authorized [id number] Closed 03/05/2022 03/05/2023 1 1 Encounter Details Date Type Department Care Team (Late st Contact Info) Description 03/05/2022 Transcribe Orders [facility] Pulmonary, Allergy and Critical Care Medicine [address] [facility] [place] [address] Jj Carlos DO [address] [facility] [address] [place], [place] [id number] [email or web address] Social History Tobacco Use Types Packs/Day Years Used Date Smoking Tobacco: Never Smokeless Tobacco: Never Sex and Gender Information Value Date Recorded Sex Assigned at Not on file Legal Sex Male 10:33 PM EDT Gender Identity Not on file Sexual Orientation Not on file documented as of this encounter Plan of Treatment Scheduled Referrals Name Type Priority Associated Diagnoses Order Schedule Ambulatory referral to [facility] Pulmonology Outpatient Referral Routine Ordered: 03/05/2022 documented as of this encounter Visit Diagnoses Not on filedocumented in this encounter Care Teams Clearance Cutter Relationship Specialty Start Date End Date Jj Carlos DO [email or web address] PCP - General Internal Medicine 07/23/20 Jj Carlos DO [address] [place] [address] Insurance Assigned Provider 04/04/21 04/16/23 documented as of this encounter Additional Source Comments The information contained in this document represents components of the legal health record. It is not the complete legal health record.[facility]
--- OUTSIDE RECORDS SUMMARY | 2025-09-24 08:57 | XMS_ITS | Encounter Summary ---
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 Procedures CT Chest CHG DIAGNOSTIC COMPUTED TOMOGRAPHY THORAX W/CONTRAST Odin Orosco MD [address] [employer], [place] [address] Phone: tel: fax: [email or web address] Referral ID Status Reason Start Date Expiration Date Visits Re quested Visits Authorized [id number] Closed 12/04/2024 02/02/2025 1 1 * MRI/CAT Scan - Closed Specialty Diagnoses / Procedures Referred By Contac t Referred To Contact Radiology Diagnoses 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 No no suspicious intrathoracic pathology identified. 2. Incidental note of a right adrenal nodule, incompletely characterized on the single phase contrast-enhanced examination. In the absence of prior history of malignancy, this nodule is probably benign. Consider 12 month follow-up with adrenal protocol CT. Narrative 12/30/2024 5:[address] CHEST WITH CONTRAST Referring clinician's provided indication for this examination in Epic: Outside Radiology Order; PARALYSIS OF LEFT VOCAL CORD TECHNIQUE: Multidetector CT of the chest was performed with intravenous contrast using tailored dose modulation techniques. COMPARISON: CT neck 12/27/2024 FINDINGS: Devices/Tubes/Lines: None. Lungs: The trachea and central bronchi are patent. Scattered calcified granulomas are noted throughout the lungs. No suspicious pulmonary nodules identified. No focal consolidation. Pleura: No pleural effusion or pneumothorax. Mediastinum: No thyroid nodules. Heart and pericardium are normal. Mild amount of coronary calcifications. Lymph Nodes: No enlarged supraclavicular, axillary, mediastinal, or hilar lymph nodes. Upper Abdomen: Diffuse hepatic steatosis. Incidental note of 2.0 cm right adrenal nodule, incompletely characterized on this single phase contrast-enhanced examination. Chest Wall: Severe left, moderate right gynecomastia. Bones: No suspicious lytic or blastic lesions. Procedure Note Gabriela Medrano MD - 12/30/2024 CT CHEST WITH CONTRAST Referring clinician's provided indication for this examination in Epic:Outside Radiology Order; PARALYSIS OF LEFT VOCAL CORD TECHNIQUE: Multidetector CT of the chest was performed with intravenouscontrast using tailored dose modulation techniques. COMPARISON: CT neck 12/27/2024 FINDINGS: Devices/Tubes/Lines: None. Lungs: The trachea and central bronchi are patent. Scattered calcified granulomas are noted throughout the lungs. Nosuspicious pulmonary nodules identified. No focal consolidation. Pleura: No pleural effusion or pneumothorax. Mediastinum: No thyroid nodules. Heart and pericardium are normal. Mildamount of coronary calcifications. Lymph Nodes: No enlarged supraclavicular, axillary, mediastinal, or hilarlymph nodes. Upper Abdomen: Diffuse hepatic steatosis. Incidental note of 2.0 cm rightadrenal nodule, incompletely characterized on this single phasecontrast-enhanced examination. Chest Wall: Severe left, moderate right gynecomastia. Bones: No suspicious lytic or blastic lesions. IMPRESSION: 1. No no suspicious intrathoracic pathology identified. 2. Incidental note of a right adrenal nodule, incompletely characterizedon the single phase contrast-enhanced examination. In the absence of priorhistory of malignancy, this nodule is probably benign. Consider 12 monthfollow-up with adrenal protocol CT. us Odin Orosco MD IM CT CHEST Final Res ult * CT NECK SOFT TISSUE WITH CONTRAST (12/27/2024 5:49 PM EST) Anatomical Region Laterality Modality Neck Computed Tomogra phy 12/31/2024 12:3 9 PM EST Impressions 12/31/2024 12:49 PM EST 1. 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 2. No abnormally enhancing soft tissue lesion or organized fluid collection in the neck. 3. No evidence of cervical lymphadenopathy. Narrative 12/31/2024 12:[address] NECK SOFT TISSUE WITH CONTRAST Referring clinician's provided indication for this examination in [facility]: Outside Radiology Order; PARALYSIS OF LEFT VOCAL CORD TECHNIQUE: Multidetector-row CT of the neck was performed with intravenous contrast using tailored dose modulation techniques. Images were reconstructed in the axial, coronal, and sagittal planes. COMPARISON: None available FINDINGS: Aerodigestive Tract: Streak artifacts related to dental amalgam/implants limit the evaluation. Within this limitation, there is no evidence of abnormal nodular enhancement along the visualized mucosa of the aerodigestive tract. 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 There is partial effacement of the left piriform sinus, which may be positional. Soft Tissues: No abnormally enhancing lesion or organized fluid collection in the neck. Lymph Nodes: There are no nodes meeting CT criteria for pathologic involvement. Salivary Glands: The parotid and submandibular glands are normal. Thyroid Gland: The thyroid gland is homogenous in attenuation. Vessels: Scattered atherosclerotic calcifications are seen. Paranasal Sinuses and Mastoids: The paranasal sinuses are well-aerated. The mastoids are well-aerated Brain and Orbits: No detectable abnormality is present in the imaged portions of the brain and orbits. Lung Apices: Please refer to the dedicated chest CT performed concurrently. Bones: No suspicious osseous lesions are present. Vertebral body hemangioma is noted at C3 level. Procedure Note Parag Watson MD - 12/31/2024 CT NECK SOFT TISSUE WITH CONTRAST Referring clinician's provided indication for this examination in [facility]:Outside Radiology Order; PARALYSIS OF LEFT VOCAL CORD TECHNIQUE: Multidetector-row CT of the neck was performed with intravenouscontrast using tailored dose modulation techniques. Images werereconstructed in the axial, coronal, and sagittal planes. COMPARISON: None available FINDINGS: Aerodigestive Tract: Streak artifacts related to dental amalgam/implantslimit the evaluation. Within this limitation, there is no evidence ofabnormal nodular enhancement along the visualized mucosa of theaerodigestive tract. The right laryngeal ventricle is asymmetricallyenlarged, which could suggest right vocal fold paresis. There is partialeffacement of the left piriform sinus, which may be positional. Soft Tissues: No abnormally enhancing lesion or organized fluid collectionin the neck. Lymph Nodes: There are no nodes meeting CT criteria for pathologicinvolvement. Salivary Glands: The parotid and submandibular glands are normal. Thyroid Gland: The thyroid gland is homogenous in attenuation. Vessels: Scattered atherosclerotic calcifications are seen. Paranasal Sinuses and Mastoids: The paranasal sinuses are well-aerated.The mastoids are well-aerated Brain and Orbits: No detectable abnormality is present in the imagedportions of the brain and orbits. Lung Apices: Please refer to the dedicated chest CT performedconcurrently. Bones: No suspicious osseous lesions are present. Vertebral bodyhemangioma is noted at C3 level. IMPRESSION: 1. The right laryngeal ventricle is asymmetrically enlarged, which couldsuggest right vocal fold paresis. 2. No abnormally enhancing soft tissue lesion or organized fluidcollection in the neck. 3. No evidence of cervical lymphadenopathy. 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 It is not the complete legal health record.[facility]
[2025-09-24 13:34] LABS: Alanine Aminotransferase 48 U/L (0-40); Albumin Level 4.6 g/dL (3.5-5.0); Alkaline Phosphatase 81 U/L (39-117); Anion Gap 14 (12-20); Aspartate Amino Transferase 28 U/L (5-37); Blood Urea Nitrogen 19 mg/dL (9-16); Calcium 9.1 mg/dL (8.4-10.2); Carbon Dioxide 26 mmol/L (22-29); Chloride 103 mmol/L (96-108); Cholesterol 135 mg/dL (<200); Estimated Glomerular Filt Rate > 60; HDL Cholesterol 31 mg/dL (>40); Potassium 4.0 mmol/L (3.3-5.1); Sodium 139 mmol/L (135-145); Total Protein 7.6 g/dL (6.5-8.0); Triglycerides 149 mg/dL (<150)
[2025-09-25 07:59] LABS: Hemoglobin A1C 243.1260 umol/L; Total Hemoglobin (HGBA1C) 2645.2587 umol/L
== END 2025-09-24 08:21 | disposition home or self-care (01) ==
LOC: HO.MANLDS 08:20
PROVIDERS: Visit Provider Internal Medicine
DX: E11.9 Type 2 diabetes mellitus without complications (principal)
CPT/HCPCS: 36415; 80053; 80061; 83036